=== PATIENT | female | born 1960 | race Caucasian/White ===

== ENCOUNTER 2017-05-03 22:45 | Emergency (ER) | payer OTHER ==
[2017-05-03 22:58] VITALS: BP 150/77; PULSE 100; TEMP 98.5; BMI 30.1
--- NOTE | 2017-05-03 23:23 | PDOC ---
History of Present Illness - General History Source: Patient <Niranjan Caldwell - Last Filed: 05/04/17 01:19> - General History Source: Patient Exam Limitations: No Limitations - History of Present Illness Initial Comments: 05/03/17 23:50 The patient is a 56 year old female, with significant past medical history of gastritis, hysterectomy few years ago, hx of diverticulosis and diverticulitis who presents to the ED with complaint of lower abdominal pain for 2 days. She states that the pain is cramping in nature 1010 nonradiating. She states that she was able to eat 2 hours prior to presentation. She states that she is slightly more constipated than she normally is. She is also complaining of a headache. The patient denies dysuria, frequency, urgency and hematuria. The patient denies nausea, vomiting, and diarrhea. She denies any sick contact or recent travel. The patient denies alcohol use, tobacco use, and recreational drug use. <Zaida Shaver - Last Filed: 05/04/17 01:22> - General Chief Complaint: Pain, Acute Stated Complaint: STOMACH PAIN Time Seen by Provider: 05/03/17 23:07 Past History - Past Medical History GI Disorders: Yes (GASTRITIS, divertic) - Psycho/Social/Smoking Cessation Hx Suicidal Ideation: No Smoking History: Never smoked Hx Alcohol Use: No Drug/Substance Use Hx: No Substance Use Type: None <Pam Caldwellan - Last Filed: 05/04/17 01:19> <Zaida Shaver - Last Filed: 05/04/17 01:22> - Past Medical History Allergies/Adverse Reactions: Allergies Allergy/AdvReac Type Severity Reaction Status Date / Time No Known Allergies Allergy Verified 05/03/17 22:55 Home Medications: Ambulatory Orders Ranitidine HCl [Zantac] 300 mg PO HS 05/03/17 Ibuprofen 800 mg PO TID #30 tablet 05/04/17 Levofloxacin [Levaquin -] 500 mg PO DAILY #7 tablet 05/04/17 Metronidazole [Flagyl -] 500 mg PO BID #14 tablet 05/04/17 Review of Systems - Review of Systems Able to Perform ROS?: Yes Comments:: 05/03/17 23:50 CONSTITUTIONAL: Absent: fever, chills, diaphoresis, generalized weakness, malaise, loss of appetite HEENT: Absent: rhinorrhea, nasal congestion, throat pain, throat swelling, difficulty swallowing, mouth swelling, ear pain, eye pain, visual Changes CARDIOVASCULAR: Absent: chest pain, syncope, palpitations, irregular heart rate, lightheadedness , peripheral edema RESPIRATORY: Absent: cough, shortness of breath, dyspnea with exertion, orthopnea, wheezing, stridor, hemoptysis GASTROINTESTINAL: Present: abdominal pain Absent: abdominal distension, nausea, vomiting, diarrhea, constipation, melena, hematochezia GENITOURINARY: Absent: dysuria, frequency, urgency, hesitancy, hematuria, flank pain, genital pain MUSCULOSKELETAL: Absent: myalgia, arthralgia, joint swelling SKIN: Absent: rash, itching, pallor HEMATOLOGIC/IMMUNOLOGIC: Absent: easy bleeding, easy bruising, lymphadenopathy, frequent infections ENDOCRINE: Absent: unexplained weight gain, unexplained weight loss, heat intolerance, cold intolerance NEUROLOGIC: Present: headache Absent: focal weakness or paresthesias, dizziness, unsteady gait, seizure, mental status changes, bladder or bowel incontinence PSYCHIATRIC: Absent: anxiety, depression, suicidal or homicidal ideation, hallucinations. <Zaida Shaver - Last Filed: 05/04/17 01:22> *Physical Exam - Vital Signs Last Vital Signs Temp Pulse Resp BP Pulse Ox 98.5 F 100 H 24 150/77 98 05/03/17 22:56 05/03/17 22:56 05/03/17 22:56 05/03/17 22:56 05/03/17 22:56 <Niranjan Caldwell - Last Filed: 05/04/17 01:19> - Vital Signs Last Vital Signs Temp Pulse Resp BP Pulse Ox 98.5 F 100 H 24 150/77 98 05/03/17 22:56 05/03/17 22:56 05/03/17 22:56 05/03/17 22:56 05/03/17 22:56 - Physical Exam Comments: 05/03/17 23:51 GENERAL: Well developed, well nourished. Awake and alert. In no acute distress. HEENT: Normocephalic, atraumatic. PERRLA, EOMI. No conjunctival pallor. Sclerae are non -icteric. Moist mucous membranes. Oropharynx is clear. NECK: Supple. Full ROM. No JVD. Carotid pulses 2+ and symmetric, without bruits. No thyromegaly. No lymphadenopathy. CARDIOVASCULAR: Regular rate and rhythm. No murmurs, rubs, or gallops. Distal pulses are 2+ and symmetric. PULMONARY: No evidence of respiratory distress. Lungs clear to auscultation bilaterally. No wheezing, rales or rhonchi. ABDOMINAL: (+) Abdomen soft, lower abdominal tenderness low segment region from right through lower quadrants no rebound or guarding. Non-distended. No organomegaly. Normoactive bowel sounds. MUSCULOSKELETAL Normal range of motion at all joints. No bony deformities or tenderness. No CVA tenderness. EXTREMITIES: No cyanosis. No clubbing. No edema. No calf tenderness. SKIN: Warm and dry. Normal capillary refill. No rashes. No jaundice. NEUROLOGICAL: Alert, awake, appropriate. Cranial nerves 2-12 intact. No deficits to light touch and temperature in face, upper extremities and lower extremities. No motor deficits in the in face, upper extremities and lower extremities. Normoreflexic in the upper and lower extremities. Normal speech. Toes are downgoing bilaterally. Gait is normal without ataxia. PSYCHIATRIC: Cooperative. Good eye contact. Appropriate mood and affect. <Zaida Shaver - Last Filed: 05/04/17 01:22> Heart Score/ECG Review #1 05/04/17 01:21 THIS IS A PRELIMINARY REPORT FROM [facility]CHNICIAN EXAM: CT abdomen and pelvis without contrast FINDINGS: Lung bases are clear. The visualized cardiac chambers are normal size and configuration. Normal unenhanced liver, gallbladder, pancreas, spleen, adrenal glands and kidneys. The stomach and abdominal small and large bowel are normal. There is no aortic aneurysm. There is no significant retroperitoneal lymphadenopathy. There is mild sigmoid inflammation with associated diverticulosis, consistent with diverticulitis. There is a small amount of free fluid and adjacent mesenteric edema, but no abscess or free air.. The appendix is normal. Status post hysterectomy Urinary bladder is unremarkable. There is no pelvic free fluid. No discrete pelvic lymphadenopathy is identified. IMPRESSION: Uncomplicated acute sigmoid diverticulitis. THIS DOCUMENT HAS BEEN ELECTRONICALLY SIGNED Lb Lynch MD <Zaida Shaver - Last Filed: 05/04/17 01:22> ED Treatment Course - LABORATORY CBC & Chemistry Diagram: 05/03/17 23:30 05/03/17 23:30 <Niranjan Caldwell - Last Filed: 05/04/17 01:19> - LABORATORY CBC & Chemistry Diagram: 05/03/17 23:30 05/03/17 23:30 - Medications Given in the ED: ED Medications Discontinued Medications Generic Name Dose Route Start Last Admin Trade Name Kiarra PRN Reason Stop Dose Admin Ketorolac Tromethamine 30 mg 05/03/17 23:29 05/03/17 23:42 Toradol Injection - IVPUSH 05/03/17 23:30 30 mg ONCE ONE Administration <Zaida Shaver - Last Filed: 05/04/17 01:22> Medical Decision Making - Medical Decision Making 05/04/17 01:20 Dr. Caldwell: The scribe's documentation has been prepared under my direction and personally reviewed by me in its entirery. I confirm that the note above accurately reflects all work, treatment, procedures, and medical decision making performed by me. Patient found to have an Compcare to diverticulitis. Will discharge on by mouth antibiotics. And to follow-up with GI. <Niranjan Caldwell - Last Filed: 05/04/17 01:19> *DC/Admit/Observation/Transfer - Discharge Dispostion Admit: No <Niranjan Caldwell - Last Filed: 05/04/17 01:19> - Attestations Scribe Attestion: 05/03/17 23:52 Documentation prepared by GRACIELA Amado, acting as medical director for Niranjan Caldwell DO. <Zaida Shaver - Last Filed: 05/04/17 01:22> Diagnosis at time of Disposition: Diverticulitis large intestine Qualifiers: Diverticulitis bleeding: unspecified bleeding status Diverticulitis complication: without perforation or abscess Qualified Code(s): K57.32 - Diverticulitis of large intestine without perforation or abscess without bleeding - Discharge Dispostion Disposition: HOME Condition at time of disposition: Stable - Prescriptions Prescriptions: Metronidazole [Flagyl -] 500 mg PO BID #14 tablet Ibuprofen 800 mg PO TID #30 tablet Levofloxacin [Levaquin -] 500 mg PO DAILY #7 tablet - Referrals Referrals: Margarita Sullivan MD [Primary Care Provider] - Lucian Ontiveros MD [Staff Physician] - - Patient Instructions Printed Discharge Instructions: DI for Diverticulosis, DI for Diverticulitis Print Language: TONGAN
[2017-05-03] MEDS ORDERED: SODIUM CHLORIDE 1,000 ML IV STA (23:29)
[2017-05-03] MEDS ORDERED: KETOROLAC TROMETHAMINE 30 MG/1 ML VIAL IVPUSH ONE (23:29)
[2017-05-03 23:57] LABS: BASOPHIL 0.5 % (0-2.0); MCH 30.4 pg (25.7-33.7); MCHC 33.9 g/dl (32.0-36.0); MEAN CELL VOLUME 89.8 fl (80-96); MEAN PLT VOLUME 8.7 fl (7.5-11.1); NEUTROPHILS 72.3 % (42.8-82.8); PLATELET COUNT 144 K/MM3 (134-434); RDW 13.3 % (11.6-15.6); WHITE BLOOD COUNT 6.1 K/mm3 (4.0-10.0)
[2017-05-04 00:01] LABS: INR 1.3 (0.82-1.09); PROTHROMBIN TIME (PATIENT) 14.4 SEC (9.98-11.88)
[2017-05-04 00:09] LABS: ALBUMIN 3.6 g/dl (3.4-5.0); ANION GAP 8 (8-16); BILIRUBIN,TOTAL 0.4 mg/dL (0.2-1.0); CALCIUM 8.5 mg/dL (8.5-10.1); CO2 31 mmol/L (21-32); CREATININE 0.8 mg/dL (0.55-1.02); GLUCOSE,RANDOM 137 mg/dL (74-106); MAGNESIUM 2.2 mg/dL (1.8-2.4); SGOT/AST 50 U/L (15-37); SGPT/ALT 46 U/L (12-78); TOT PROT 7.4 g/dl (6.4-8.2)
[2017-05-04 00:11] LABS: ALK PHOS 172 U/L (45-117)
[2017-05-04] MEDS ORDERED: POTASSIUM CHLORIDE TABS 20 MEQ TABLET.ER (FP) PO ONE ×2 (01:09→01:17)
[2017-05-04] MEDS ORDERED: metroNIDAZOLE 250 MG TABLET PO ONE (01:17)
[2017-05-04] MEDS ORDERED: LEVOFLOXACIN 500 MG TABLET (FP) PO ONE (01:17)
[2017-05-04] MEDS ORDERED: LEVOFLOXACIN 500 MG TABLET (FP) ONE (01:25)
[2017-05-04] MEDS ORDERED: metroNIDAZOLE 250 MG TABLET ONE (01:25)
== END 2017-05-04 01:36 | disposition home or self-care (01) ==
LOC: JER 22:45
PROC: 3E0333Z Introduction of Anti-inflammatory into Peripheral Vein, Percutaneous Approach (ICD-10-PCS; principal; 2017-05-03)
PROC: 3E0337Z Introduction of Electrolytic and Water Balance Substance into Peripheral Vein, Percutaneous Approach (ICD-10-PCS; 2017-05-03)
DX: K57.32 Diverticulitis of large intestine without perforation or abscess without bleeding (principal)
CPT/HCPCS: 36415; 74176-TC; 80053; 83690; 83735; 83880; 84703; 85025; 85610; 87040; 99283-25

== ENCOUNTER 2018-08-15 07:42 | Day surgery (SDC) | payer OTHER ==
[2018-08-13 13:53] VITALS: BMI 25.1
[~2018-08-15 07:42] MED LIST: ACETAMINOPHEN 325 MG TABLET (FP) PO PRN
[2018-08-15] MEDS ORDERED: PHENYLEPHRINE 2.5% OPHTH SOLN 15 ML BOTTLE ONE (07:51)
[2018-08-15] MEDS ORDERED: TROPICAMIDE 1% OPHTH SOLN 15 ML BOTTLE ONE (07:51)
[2018-08-15] MEDS ORDERED: OFLOXACIN 0.3% OPHTHALMIC SOLUTION 5 ML BOTTLE ONE (07:51)
[2018-08-15] MEDS ORDERED: CYCLOPENTOLATE HCL 1% OPHTH SOLN 2 ML BOTTLE ONE (07:51)
[2018-08-15] MEDS ORDERED: KETOROLAC TROMETHAMINE 0.5% EYE DROP 1 DROP DROPS ONE (07:52)
[2018-08-15] MEDS ORDERED: EPINEPHrine/PF 1 MG/1 ML (1:1,000) AMPULE ONE (07:57)
[2018-08-15] MEDS ORDERED: TETRACAINE 0.5% OPHTH SOLN 2 ML BOTTLE ONE (07:58)
[2018-08-15] MEDS ORDERED: LIDOCAINE HCL/PF 1% SDV 5ML VIAL ONE (07:58)
[2018-08-15] MEDS ORDERED: BSS (NA/CA/MG/K) BALANCED SALT SOLUTION OPHTH SOLN 15 ML BOTTLE ONE (07:58)
[2018-08-15 08:04] VITALS: TEMP 98.2
[2018-08-15] MEDS: CYCLOPENTOLATE HCL 1% OPHTH SOLN 2 ML BOTTLE OP SCH ×3 (08:25→09:13)
[2018-08-15] MEDS: OFLOXACIN 0.3% OPHTHALMIC SOLUTION 5 ML BOTTLE OP SCH ×3 (08:25→09:13)
[2018-08-15] MEDS: PHENYLEPHRINE 2.5% OPHTH SOLN 15 ML BOTTLE OP SCH ×3 (08:25→09:13)
[2018-08-15] MEDS: KETOROLAC TROMETHAMINE 0.5% EYE DROP 1 DROP DROPS OP SCH ×3 (08:25→09:13)
[2018-08-15] MEDS: TROPICAMIDE 1% OPHTH SOLN 15 ML BOTTLE OP SCH ×3 (08:25→09:13)
[2018-08-15] MEDS ORDERED: MIDAZOLAM HCL 2 MG/2 ML SINGLE DOSE VIAL ONE (09:54)
[2018-08-15] MEDS ORDERED: LIDOCAINE HCL 1% PRESERVATIVE FREE - 30ML VIAL IO ONE (09:59)
[2018-08-15] MEDS ORDERED: TETRACAINE 0.5% HCL 0.6ML DROPPER.BOTTLE OD ONE (10:00)
[2018-08-15] MEDS ORDERED: CHONDROITIN SU A/HYALUR SOD 1 KIT IO ONE (10:00)
[2018-08-15] MEDS ORDERED: EPINEPHrine/PF 1 MG/1 ML (1:1,000) AMPULE IO ONE (10:00)
--- NOTE | 2018-08-15 10:53 | SPEC ---
DATE OF OPERATION: DATE OF DICTATION: 08/15/2018 PREOPERATIVE DIAGNOSIS: Cataract, right eye. POSTOPERATIVE DIAGNOSIS: Cataract, right eye. OPERATION: Phacoemulsification with posterior chamber intraocular lens implantation, right eye. Lens used [id number], 21.0 diopter power, serial number [id number]. SURGEON: Lo Hope M.D. ANESTHESIA: Topical MAC. COMPLICATIONS: None. PROCEDURE: The patient was brought to the operating room and correctly identified along with the operative site and the correct intraocular lens kenny. The patient was then prepped and draped in the usual sterile fashion including 5% Betadine solution in the conjunctival sac and an eyelid drape. An eyelid speculum was then placed in the eye. A paracentesis port was created and approximately 0.5 mL of preservative free Lidocaine was then injected into the eye. Viscoelastic was then injected to inflate the anterior chamber. A temporal clear corneal wound was created. A continuous circular capsulorrhexis was performed. The nucleus was then hydrodissected with BSS and removed with phacoemulsification. The remaining cortical material was irrigated and aspirated. Viscoelastic was injected to inflate the capsular bag and the intraocular lens was then implanted into the capsular bag. The remaining Viscoelastic was irrigated and aspirated from the eye. The IOL was noted to be well centered and completely covered by the anterior capsulorrhexis. Topical vancomycin was placed and the eye patched and shielded. All wounds were tested and found to be watertight. No suture was placed. The eye was then shielded. The patient was then discharged from the operating room in stable condition. LO HOPE M.D. [id number]
[2018-08-15 11:21] VITALS: BP 125/70; PULSE 72
[2018-08-15] MEDS ORDERED: CHONDROITIN SU A/HYALUR SOD 1 KIT ONE (12:53)
== END 2018-08-15 11:25 | disposition home or self-care (01) ==
LOC: JASU-SURG 07:42
PROVIDERS: ATTEND Ophthalmology
PROC: 08RJ3JZ Replacement of Right Lens with Synthetic Substitute, Percutaneous Approach (ICD-10-PCS; principal; 2018-08-15 10:00)
DX: H26.9 Unspecified cataract (principal)

== ENCOUNTER 2018-09-19 15:31 | Emergency (ER) | payer OTHER ==
[2018-09-19] MEDS ORDERED: ONDANSETRON 4 MG/2 ML VIAL IVPUSH ONE (15:35)
[2018-09-19] MEDS ORDERED: SODIUM CHLORIDE 1,000 ML IV STA (15:35)
--- NOTE | 2018-09-19 15:35 | PDOC ---
Rapid Medical Evaluation Medical Evaluation: Allergies Allergy/AdvReac Type Severity Reaction Status Date / Time No Known Allergies Allergy Verified 05/03/17 22:55 I have performed a brief in-person evaluation of this patient. The patient presents with a chief complaint of: Hx fatty liver; c/o upper abdominal and back pain from yesterday after eating tacos; had 3 episodes of NBNB emesis today. Denies fever, diarrhea Pertinent physical exam findings: In NAD, abdomen soft, ND, NT; no CVA tenderness I have ordered the following: Labs, IVF, Zofran, Pepcid, EKG The patient will proceed to the ED for further evaluation. 09/19/18 15:32
[2018-09-19 15:37] VITALS: TEMP 98.6; BMI 25.4
[2018-09-19 16:15] LABS: BASO % 0.1 % (0-2.0); EOS % 0.8 % (0-4.5); HEMATOCRIT 41.3 % (32.4-45.2); HEMOGLOBIN 14.8 GM/dL (10.7-15.3); LYMPH % 11.2 % (8-40); MCH 33.5 pg (25.7-33.7); MCHC 35.9 g/dl (32.0-36.0); MEAN CELL VOLUME 93.4 fl (80-96); MEAN PLT VOLUME 8.4 fl (7.5-11.1); MONO % 7.2 % (3.8-10.2); NEUT % 80.7 % (42.8-82.8); PLATELET COUNT 137 K/MM3 (134-434); RBC 4.42 M/mm3 (3.60-5.2); WHITE BLOOD COUNT 3.6 K/mm3 (4.0-10.0)
[2018-09-19] MEDS ORDERED: ONDANSETRON 4 MG/2 ML VIAL ONE (16:22)
[2018-09-19] MEDS ORDERED: FAMOTIDINE 20 MG/50 ML IVPB 20 MG/50 ML MG IVPB ONE ×2 (16:26→16:54)
--- NOTE | 2018-09-19 16:33 | PDOC ---
History of Present Illness - General Chief Complaint: Pain Stated Complaint: ABD PAIN, HEADACHE,BACK PAIN Time Seen by Provider: 09/19/18 15:55 History Source: Patient Exam Limitations: No Limitations (nursing ) - History of Present Illness Initial Comments: Pt is a 58 yo F, with PMH of gastritis (takes ranitidine) and diverticulitis, who is presenting with complaints of lower back pain and diffuse abdominal pain since yesterday. Pt states the pain initially started in her L lower back, and was associated with 2 episodes of NBNB vomiting after eating tacos last night. Pt normally takes ranitidine for gastritis. The ranitidine helped her pain last night, but the pain started again this morning around 11 am. The pain then spread around her abdomen and is now worse in the epigastric and RUQ area, and is also now associated with a frontal headache. The pt took her ranitidine again this morning and the pain was not improved. She describes the pain as constant and sharp. Pt denies any fevers/chills, vision changes, chest pain, palpitations, SOB, nausea, urinary symptoms, diarrhea/constipation, or leg swelling. Social: Pt denies any cigarette, alcohol, or drug use. Pt denies any recent travel or sick contacts. Surgical: hysterectomy Family: no relevant history 09/19/18 17:31 Past History - Travel Traveled outside of the country in the last 30 days: No Close contact w/someone who was outside of country & ill: No - Past Medical History Allergies/Adverse Reactions: Allergies Allergy/AdvReac Type Severity Reaction Status Date / Time No Known Allergies Allergy Verified 09/19/18 15:36 Home Medications: Ambulatory Orders Ranitidine [Zantac -] 150 mg PO DAILY 08/15/18 Mag Hydrox/Al Hydrox/Simeth [Mylanta Suspension -] 30 ml PO Q6H PRN #1 bottle Anemia: Yes COPD: No GI Disorders: Yes (GASTRITIS) Liver Disease: Yes (ENLARGED, autoimmune) - Surgical History Abdominal Surgery: Yes (hysterectomy) Cholecystectomy: No GI Surgery: No - Immunization History Immunization Up to Date: Yes - Suicide/Smoking/Psychosocial Hx Smoking History: Never smoked Information on smoking cessation initiated: No Hx Alcohol Use: No Drug/Substance Use Hx: No Substance Use Type: None Hx Substance Use Treatment: No Review of Systems - Review of Systems Able to Perform ROS?: Yes Is the patient limited Slovak proficient: Yes Constitutional: Yes: Weight Stable. No: Chills, Diaphoresis, Fever, Loss of Appetite, Weakness HEENTM: No: Recent change in vision, Nose Congestion, Throat Pain Respiratory: No: Cough, Orthopnea, Shortness of Breath Cardiac (ROS): No: Chest Pain, Edema, Irregular Heart Rate, Lightheadedness, Palpitations, Syncope, Chest Tightness ABD/GI: Yes: See HPI, Vomiting, Indigestion, Abdominal cramping. No: Abdominal Distended, Abd. Pain w/ defecation, Constipated, Diarrhea, Nausea, Poor Appetite , Poor Fluid Intake, Rectal Bleeding : No: Burning, Dysuria, Frequency, Flank Pain, Pain, Testicular Mass Musculoskeletal: Yes: See HPI. No: Back Pain, Joint Pain, Joint Swelling, Muscle Weakness Integumentary: No: Rash Neurological: No: Headache, Weakness, Dizziness Psychiatric: No: Sleep Pattern Change, Change in Appetite Endocrine: No: Increased Urine, Change in Weight Hematologic/Lymphatic: No: Anemia, Blood Clots, Easy Bleeding, Easy Bruising All Other Systems: Reviewed and Negative *Physical Exam - Vital Signs Last Vital Signs Temp Pulse Resp BP Pulse Ox 98.6 F 86 18 131/97 97 09/19/18 15:35 09/19/18 15:35 09/19/18 15:35 09/19/18 15:35 09/19/18 15:35 - Physical Exam General Appearance: Yes: Nourished, Appropriately Dressed. No: Apparent Distress HEENT: positive: EOMI, AKBAR, Normal ENT Inspection, Normal Voice, Pharynx Normal , Hearing Grossly Normal. negative: Scleral Icterus (R), Scleral Icterus (L), Pharyngeal Erythema, Tonsillar Exudate, Tonsillar Erythema, Nasal Congestion, Rhinorrhea Neck: positive: Trachea midline, Normal Thyroid, Supple. negative: Tender, Rigid, Lymphadenopathy (R), Lymphadenopathy (L), Rigidity Respiratory/Chest: positive: Lungs Clear, Normal Breath Sounds. negative: Chest Tender, Respiratory Distress, Accessory Muscle Use, Crackles, Wheezing Cardiovascular: positive: Regular Rhythm, Regular Rate, S1, S2. negative: Edema , JVD, Murmur Vascular Pulses: Carotid (R): 4+, Carotid (L): 4+ Gastrointestinal/Abdominal: positive: Normal Bowel Sounds, Tender (RUQ and epigastric tenderness to palpation), Flat, Soft. negative: Organomegaly, Pulsatile Mass, Distended, Guarding, Rebound, Hepatomegaly, Spleenomegaly Rectal Exam: positive: deferred Lymphatic: negative: Adenopathy, Tenderness Musculoskeletal: positive: Normal Inspection. negative: CVA Tenderness Extremity: positive: Normal Capillary Refill, Normal Inspection, Normal Range of Motion, Pelvis Stable. negative: Tender, Pedal Edema Integumentary: positive: Normal Color, Dry, Warm. 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 NML intact, Fully Oriented, Alert, Normal Mood/ Affect, Normal Response, Motor Strength 5/5 Moderate Sedation - Procedure Monitoring Vital Signs: Procedure Monitoring Vital Signs Temperature 98.6 F 09/19/18 15:35 Pulse Rate 86 09/19/18 15:35 Respiratory Rate 18 09/19/18 15:35 Blood Pressure 131/97 09/19/18 15:35 O2 Sat by Pulse Oximetry (%) 97 09/19/18 15:35 Heart Score/ECG Review - History History: Slightly suspicious - Electrocardiogram EKG: Non specific repolarization disturbance - Age Age: 45-65 - Risk Factors Based on the list above the patient has:: No risk factors known - Troponin Troponin: </= normal limit - Score Heart Score - Total: 2 ED Treatment Course - LABORATORY CBC & Chemistry Diagram: 09/19/18 16:00 09/19/18 16:00 - ADDITIONAL ORDERS Additional order review: 09/19/18 16:00 RBC 4.42 MCV 93.4 MCHC 35.9 RDW 14.0 MPV 8.4 Neutrophils % 80.7 Lymphocytes % 11.2 D Monocytes % 7.2 Eosinophils % 0.8 Basophils % 0.1 - Medications Given in the ED: ED Medications Discontinued Medications Generic Name Dose Route Start Last Admin Trade Name Freq PRN Reason Stop Dose Admin Ondansetron HCl 4 mg 09/19/18 15:35 09/19/18 16:29 Zofran Injection IVPUSH 09/19/18 15:36 4 mg ONCE ONE Administration Medical Decision Making - Medical Decision Making Pt was seen at bedside, also will be seen by attending Dr. Farnsworth. Pt presenting with complaints of lower back pain and diffuse abdominal pain since yesterday. Pt states the pain initially started in her L lower back, and was associated with 2 episodes of NBNB vomiting after eating tacos last night. Pt normally takes ranitidine for gastritis. The ranitidine helped her pain last night, but the pain started again this morning around 11 am. The pain then spread around her abdomen and is now worse in the epigastric and RUQ area, and is also now associated with a frontal headache. The pt took her ranitidine again this morning and the pain was not improved. She describes the pain as constant and sharp. Pt denies any fevers/chills, vision changes, chest pain, palpitations, SOB, nausea, urinary symptoms, diarrhea/constipation, or leg swelling. PE showed stable vitals, afebrile. Pt lying comfortably when I entered the room. Heart and lung sounds clear. Tenderness to palpation over the RUQ and epigastric area, no rebound, no guarding. No CVA tendernss. Considering cholelithiasis vs cholecystitis vs choledocholithiasis vs gastritis vs diverticulitis. Ordered work-up including CBC, CMP, UA, and abdominal/GB US. Provided 1 L IV NS, 20 mg IV Pepcid, 4 mg IV zofran, 1 g IV ofirmev for improvement of pain and possible acid reflux. Will continue to reassess pt and monitor for symptomatic improvement. Pt was taken to US to evaluate the gallbladder, r/o cholecystitis or obstructing stone. Pending US results. CBC WNL, no elevated WBC. CMP: K 3.3, AST 95 (not elevated on previous visits), trop <.02, lipase 105 ECG: NSR, HR 86, intervals normal. TWIs in III and V3, nonspecific T waves in V6. 09/19/18 17:24 [id number] US/ABDOMEN US -LIMITED Abdomen ultrasound-Limited Clinical information: right upper quadrant tenderness; evaluate gallbladder, liver No biliary calculus is seen. The gallbladder demonstrates no definite abnormality. No pericholecystic fluid is identified. The common bile duct diameter appears unremarkable measuring 0.5 cm. No gross intraductal calculus is seen within the limitations of transabdominal sonography. Minimal to mild hepatic surface irregularity is noted consistent with cirrhosis. No obvious mass lesion is seen. No ascites is identified within the right upper quadrant. The pancreas is partially obscured due to overlapping bowel gas. No obvious pathology is seen. The right kidney demonstrates no sonographic abnormality. There is no hydronephrosis. IMPRESSION: No sonographic evidence of cholelithiasis or acute cholecystitis. There is no definite biliary tract dilatation. Hepatic cirrhosis is noted. Several 1 mm nonobstructing right renal calculi identified on a CT study of 2016 cannot be appreciated on this ultrasound exam. 09/19/18 18:07 US of abdomen negative for acute pathology. Pt still complaining of diffuse abdominal pain. Providing viscous lidocaine and 30 mg PO mylanta suspension for pt discomfort. Ordered abd/pelvis CT with IV contrast. 09/19/18 18:16 Pt provided urine for UA. 09/19/18 18:23 Urine beta-hcg negative. Pt in CT scan. 09/19/18 18:39 Urine negative for infection. Pending CT scan results. 09/19/18 18:47 CT abd/pelvis: Impression: Colonic diverticulosis is noted without evidence of acute diverticulitis. There is equivocal visualization of a mildly thickened small bowel loop within the left midabdomen laterally - ? possible enteritis versus other pathologies. Additional evaluation utilizing CT with oral contrast may be considered, emergent versus nonemergent as clinically indicated. Hepatic cirrhosis is noted. Stable borderline splenic size. Impression: Colonic diverticulosis is noted without evidence of acute diverticulitis. There is equivocal visualization of a mildly thickened small bowel loop within the left midabdomen laterally - ? possible enteritis versus other pathologies. Additional evaluation utilizing CT with oral contrast may be considered, emergent versus nonemergent as clinically indicated. Hepatic cirrhosis is noted. Stable borderline splenic size. 09/19/18 19:42 Pt states pain much improved after maalox and lidocaine suspension. Considering normal lab results and imaging pt can be discharged to home with follow-up. Pt advised to follow-up with PCP and Dr. Ontiveros in 1-2 days. Strict return precautions provided with pt understanding. 09/19/18 19:43 Maalox sent to pt pharmacy as this medication improved her pain in the department. 09/19/18 19:49 *DC/Admit/Observation/Transfer Diagnosis at time of Disposition: Abdominal pain Qualifiers: Abdominal location: generalized Qualified Code(s): R10.84 - Generalized abdominal pain - Discharge Dispostion Disposition: HOME Condition at time of disposition: Improved Decision to Admit order: No - Referrals Referrals: Margarita Sullivan MD [Primary Care Provider] - Lucian Ontiveros MD [Staff Physician] - - Patient Instructions Printed Discharge Instructions: DI for Abdominal Pain-Adult Additional Instructions: You were seen in the ER today for abdominal pain. The results of your labs and imaging today were normal. Please follow-up with your primary care doctor and Dr. Ontiveros within 1-2 days to discuss your visit and make sure your symptoms have improved. Please return to the ER if you have any worsening pain, development of fevers or chills, loss of consciousness, vomit or diarrhea with blood, inability to tolerate food or fluids, or any other concerns. Print Language: INDONESIAN - Post Discharge Activity
--- NOTE | 2018-09-19 16:39 | PDOC ---
Attending Attestation - HPI HPI: Pt is a 58 year old female, with a significant past medical history of diverticulitis, gastritis, and sciatica, who presents to the emergency department today complaining of diffuse back pain for 2 days, and diffuse abdominal pain for one day. Patient notes she began experiencing diffuse back pain last night after having tacos. She also reports two episodes of nonbilious , non bloody vomit last night, associated with the back pain after her meal, but denies nausea and vomiting today. Patient took her ranitidine last night, which helped alleviate her symptoms. Upon start up this morning, patient notes the pain began radiating into her abdomen diffusely and is most prominent in the RUQ. She describes her pain as constant and sharp in nature. Patient states she tried taking her ranitidine medication once again this morning, but it did not provide any relief. She also reports associated frontal headache. The patient denies chest pain, shortness of breath, and dizziness. Denies fever, chills, diarrhea and constipation. Denies dysuria, frequency, urgency and hematuria. Allergies: NKA Past surgical history: Hysterectomy Social history: No reported PCP: Dr. Sullivan GI: Dr. Ontiveros 09/19/18 17:59 - Physicial Exam PE: GENERAL: The patient is in no acute distress. HEAD: Normal with no signs of trauma. EYES: PERRLA, EOMI, sclera anicteric, conjunctiva clear. ENT: Ears normal, nares patent, oropharynx clear without exudates. Moist mucous membranes. NECK: Normal range of motion, supple without lymphadenopathy, JVD, or masses. LUNGS: Breath sounds equal, clear to auscultation bilaterally. No wheezes, and no crackles. HEART:Regular rate and rhythm, normal S1 and S2 without murmur, rub or gallop. ABDOMEN: +Right-sided abdominal tenderness. Soft, normoactive bowel sounds. No guarding, no rebound. No masses palpable. EXTREMITIES: Normal range of motion, no edema. No clubbing or cyanosis. No erythema, or tenderness. NEUROLOGICAL: Cranial nerves II through XII grossly intact. Normal speech. No focal neurological deficits. MUSCULOSKELETAL: Back non-tender to palpation, no CVA tenderness SKIN: Warm, Dry, normal turgor, no rashes or lesions noted. 09/19/18 18:29 <Emily Piña - Last Filed: 09/19/18 18:29> - Resident Resident Name: Avis Low - ED Attending Attestation I have performed the following: I have examined & evaluated the patient, The case was reviewed & discussed with the resident, I agree w/resident's findings & plan, Exceptions are as noted - Medical Decision Making 09/19/18 17:50 Laboratory Tests 09/19/18 09/19/18 09/19/18 16:00 16:00 16:00 WBC 3.6 L Hgb 14.8 Hct 41.3 Plt Count 137 Sodium 138 Potassium 3.3 L Chloride 104 Carbon Dioxide 27 BUN 11 Creatinine 0.8 Random Glucose 119 H Total Bilirubin 1.4 H AST 95 H Alkaline Phosphatase 129 H Troponin I < 0.02 Lipase 105 US - no obstructing gallstones, no PCCF, no GB wall thickening 09/20/18 10:49 CT pending Signed out to Dr. Phillips Anticipate discharge <Lashell Farnsworth - Last Filed: 09/20/18 10:51> Heart Score/ECG Review - ECG Intrepretation Comment:: Normal sinus rhythm. Nonspecific T wave abnormality. Abnormal ECG. 09/19/18 17:04 <Emily Piña - Last Filed: 09/19/18 18:29>
[2018-09-19 16:41] LABS: ALBUMIN 4.1 g/dl (3.4-5.0); ALK PHOS 129 U/L (45-117); ANION GAP 7 MMOL/L (8-16); BILIRUBIN,TOTAL 1.4 mg/dL (0.2-1); BLOOD UREA NITROGEN 11 mg/dL (7-18); CALCIUM 8.8 mg/dL (8.5-10.1); CHLORIDE 104 mmol/L (98-107); CO2 27 mmol/L (21-32); CREATININE 0.8 mg/dL (0.55-1.3); GLUCOSE,RANDOM 119 mg/dL (74-106); LIPASE 105 U/L (73-393); POTASSIUM 3.3 mmol/L (3.5-5.1); SGOT/AST 95 U/L (15-37); SGPT/ALT 46 U/L (13-61); SODIUM 138 mmol/L (136-145); TOT PROT 7.1 g/dl (6.4-8.2)
[2018-09-19] MEDS ORDERED: ACETAMINOPHEN 1000 MG/100 ML VIAL (NON FORMULARY) IVPB ONE (17:06)
[2018-09-19] MEDS ORDERED: ACETAMINOPHEN INJECTION 100 ML IVPB ONE (17:11)
[2018-09-19] MEDS ORDERED: MAG HYDROX/AL HYDROX/SIMETH 30 ML UNIT-DOSE CUP PO ONE (18:14)
[2018-09-19] MEDS ORDERED: LIDOCAINE VISCOUS 2% ORAL/TOP 20 ML UNIT-DOSE CUP MM ONE (18:15)
[2018-09-19] MEDS ORDERED: LIDOCAINE VISCOUS 2% ORAL/TOP 20 ML UNIT-DOSE CUP ONE (18:20)
[2018-09-19] MEDS ORDERED: MAG HYDROX/AL HYDROX/SIMETH 30 ML UNIT-DOSE CUP ONE (18:21)
[2018-09-19 18:27] LABS: HCG,QUALITATIVE URINE Negative
[2018-09-19 18:45] LABS: URINE APPEARANCE CLEAR; URINE BILIRUBIN NEGATIVE (<2.0 mg/dL); URINE COLOR LTYELLOW; URINE GLUCOSE (UA) NEGATIVE (NEGATIVE); URINE KETONE NEGATIVE (NEGATIVE); URINE LEUK ESTERASE NEGATIVE (NEGATIVE); URINE NITRITE NEGATIVE (NEGATIVE); URINE PROTEIN NEGATIVE (NEGATIVE)
[2018-09-19 20:17] VITALS: BP 128/82; PULSE 73
--- NOTE | 2018-09-20 12:05 | EKG ---
Test Reason : Blood Pressure : / mmHG Vent. Rate : 086 BPM Atrial Rate : 086 BPM P-R Int : 128 ms QRS Dur : 078 ms QT Int : 376 ms P-R-T Axes : 054 028 023 degrees QTc Int : 449 ms NORMAL SINUS RHYTHM NONSPECIFIC T WAVE ABNORMALITY ABNORMAL ECG WHEN COMPARED WITH ECG OF 10-JUN-2010 11:22, VENT. RATE HAS INCREASED BY 33 BPM NONSPECIFIC T WAVE ABNORMALITY NOW EVIDENT IN ANTERIOR LEADS Confirmed by NOEMI LEVINE MD ([id number]) on 09/20/2018 12:04:32 PM Referred By: Confirmed By:NOEMI LEVINE MD
== END 2018-09-19 20:17 | disposition home or self-care (01) ==
LOC: JER 15:31
PROC: 3E033GC Introduction of Other Therapeutic Substance into Peripheral Vein, Percutaneous Approach (ICD-10-PCS; principal; 2018-09-19)
PROC: 3E033GC Introduction of Other Therapeutic Substance into Peripheral Vein, Percutaneous Approach (ICD-10-PCS; 2018-09-19)
PROC: 3E033NZ Introduction of Analgesics, Hypnotics, Sedatives into Peripheral Vein, Percutaneous Approach (ICD-10-PCS; 2018-09-19)
DX: K57.30 Diverticulosis of large intestine without perforation or abscess without bleeding (principal)
CPT/HCPCS: 36415; 74177-TC; 76705-TC; 80053; 81003; 83690; 84484; 84703; 85025; 93005; 93010; 99283-25; J0131; J7030

== ENCOUNTER 2022-01-26 04:37 | Day surgery (SDC) | payer OTHER ==
[2022-01-24 16:44] VITALS: BMI 25.7
[~2022-01-26 04:37] MED LIST changes: +CYCLOPENTOLATE HCL 1% OPHTH SOLN 2 ML BOTTLE OP SCH; +KETOROLAC TROMETHAMINE 0.5% EYE DROP 1 DROP DROPS OP SCH; +OFLOXACIN 0.3% OPHTHALMIC SOLUTION 5 ML BOTTLE OP SCH; +PHENYLEPHRINE 2.5% OPHTH SOLN 15 ML BOTTLE OP SCH; +TROPICAMIDE 1% OPHTH SOLN 15 ML BOTTLE OP SCH
[2022-01-26] MEDS ORDERED: CYCLOPENTOLATE HCL 1% OPHTH SOLN 2 ML BOTTLE ONE (06:39)
[2022-01-26] MEDS ORDERED: OFLOXACIN 0.3% OPHTHALMIC SOLUTION 5 ML BOTTLE ONE (06:39)
[2022-01-26] MEDS ORDERED: KETOROLAC TROMETHAMINE 0.5% EYE DROP 1 DROP DROPS ONE (06:39)
[2022-01-26] MEDS ORDERED: PHENYLEPHRINE 2.5% OPHTH SOLN 15 ML BOTTLE ONE (06:39)
[2022-01-26] MEDS ORDERED: TROPICAMIDE 1% OPHTH SOLN 15 ML BOTTLE ONE (06:39)
[2022-01-26] MEDS ORDERED: TROPICAMIDE 1% OPHTH SOLN 15 ML BOTTLE OS ONE ×3 (06:40→07:00)
[2022-01-26] MEDS ORDERED: KETOROLAC TROMETHAMINE 0.5% EYE DROP 1 DROP DROPS OS ONE ×3 (06:40→06:59)
[2022-01-26] MEDS ORDERED: OFLOXACIN 0.3% OPHTHALMIC SOLUTION 5 ML BOTTLE OS ONE ×3 (06:40→06:59)
[2022-01-26] MEDS ORDERED: PHENYLEPHRINE 2.5% OPHTH SOLN 15 ML BOTTLE OS ONE ×3 (06:40→07:00)
[2022-01-26] MEDS ORDERED: CYCLOPENTOLATE HCL 1% OPHTH SOLN 2 ML BOTTLE OS ONE ×3 (06:40→06:58)
[2022-01-26] MEDS ORDERED: LIDOCAINE HCL/PF 1% SDV 5ML VIAL ONE (07:14)
[2022-01-26] MEDS ORDERED: CHONDROITIN SU A/HYALUR SOD 1 KIT ONE ×2 (07:14→08:21)
[2022-01-26] MEDS ORDERED: VANCOMYCIN 500 MG VIAL (RESTRICTED TO ID ONLY) ONE (07:25)
[2022-01-26] MEDS ORDERED: EPINEPHrine/PF 1 MG/1 ML (1:1,000) AMPULE ONE (07:25)
[2022-01-26] MEDS ORDERED: TRYPAN BLUE 0.5 ML DISP.SYRIN ONE (07:26)
[2022-01-26] MEDS ORDERED: POVIDONE-IODINE 5% OPHTHALMIC PREP 30 ML SOLUTION ONE (07:26)
[2022-01-26] MEDS ORDERED: TETRACAINE 0.5% OPHTH SOLN 2 ML BOTTLE ONE (07:26)
[2022-01-26] MEDS ORDERED: MIDAZOLAM HCL 2 MG/2 ML SINGLE DOSE VIAL ONE (07:35)
[2022-01-26] MEDS ORDERED: TETRACAINE 0.5% OPHTH SOLN 2 ML BOTTLE OS ONE (08:02)
[2022-01-26] MEDS ORDERED: POVIDONE-IODINE 5% OPHTHALMIC PREP 30 ML SOLUTION OS ONE (08:04)
[2022-01-26] MEDS ORDERED: BSS (NA/CA/MG/K) BALANCED SALT SOLUTION OPHTH SOLN 15 ML BOTTLE OS ONE (08:11)
[2022-01-26] MEDS ORDERED: CHONDROITIN SU A/HYALUR SOD 1 KIT IO ONE ×2 (08:12)
[2022-01-26] MEDS ORDERED: LIDOCAINE HCL 1% PRESERVATIVE FREE - 30ML VIAL IO ONE (08:12)
[2022-01-26] MEDS ORDERED: TRYPAN BLUE 0.5 ML DISP.SYRIN IO ONE (08:13)
[2022-01-26] MEDS ORDERED: EPINEPHrine/PF 1 MG/1 ML (1:1,000) AMPULE SQ ONE (08:21)
[2022-01-26] MEDS ORDERED: ACETYLCHOLINE 1:100 INTRA-OCUL 20 MG/2 ML KIT IO ONE (08:58)
[2022-01-26 12:05] VITALS: BP 138/70; PULSE 68; TEMP 98
== END 2022-01-26 10:20 | disposition home or self-care (01) ==
LOC: JASU-SURG 04:37
PROVIDERS: ATTEND Ophthalmology
PROC: 08RK3JZ Replacement of Left Lens with Synthetic Substitute, Percutaneous Approach (ICD-10-PCS; principal; 2022-01-26 08:00)
DX: H26.9 Unspecified cataract (principal)

== ENCOUNTER 2023-06-07 15:33 | Emergency (ER) | payer OTHER ==
[2023-06-07 15:44] VITALS: BP 100/67; RESP 18; TEMP 98.8; BMI 25.4
[2023-06-07 17:21] LABS: BASO % 0.6 % (0-2.0); EOS % 0.8 % (0-4.5); HEMATOCRIT 37.3 % (32.4-45.2); HEMOGLOBIN 12.9 GM/dL (10.7-15.3); LYMPH % 15.1 % (8-40); MCH 32.9 pg (25.7-33.7); MCHC 34.5 g/dl (32.0-36.0); MEAN CELL VOLUME 95.4 fl (80-96); MEAN PLT VOLUME 7.9 fl (7.5-11.1); MONO % 7.8 % (3.8-10.2); NEUT % 75.7 % (42.8-82.8); PLATELET COUNT 240 10^3/uL (134-434); RBC 3.91 M/mm3 (3.60-5.2); RDW 15.6 % (11.6-15.6); WHITE BLOOD COUNT 5.9 K/mm3 (4.0-10.0)
[2023-06-07 17:51] LABS: POTASSIUM 3.1 mmol/L (3.5-5.1)
[2023-06-07 17:53] LABS: ALBUMIN 2.8 g/dl (3.4-5.0); CALCIUM 8.8 mg/dL (8.5-10.1)
[2023-06-07 17:56] LABS: CREATININE 0.6 mg/dL (0.55-1.3); PHOSPHOROUS 3.2 mg/dL (2.5-4.9)
[2023-06-07 17:57] LABS: TOT PROT 6.4 g/dl (6.4-8.2)
[2023-06-07 17:58] LABS: BILIRUBIN,TOTAL 1.3 mg/dL (0.2-1)
[2023-06-07] MEDS ORDERED: POTASSIUM CHLORIDE ORAL LIQUID 20 MEQ/15 ML PO ONE (18:08)
[2023-06-07] MEDS ORDERED: KCL 10 MEQ IVPB 10 MEQ/100 ML INFUS.BAG IVPB SCH (18:15)
[2023-06-07] MEDS ORDERED: POTASSIUM CHLORIDE ORAL LIQUID 20 MEQ/15 ML ONE (19:49)
[2023-06-07] MEDS ORDERED: KCL 10 MEQ IVPB 10 MEQ/100 ML INFUS.BAG IVPB ONE (19:49)
[2023-06-07 21:47] LABS: POTASSIUM 4.2 mmol/L (3.5-5.1)
[2023-06-07 21:48] LABS: CALCIUM 8.7 mg/dL (8.5-10.1)
[2023-06-07 21:49] LABS: BLOOD UREA NITROGEN 7.5 mg/dL (7-18)
[2023-06-07 21:52] LABS: CREATININE 0.7 mg/dL (0.55-1.3)
[2023-06-07 22:05] VITALS: PULSE 100
== END 2023-06-07 22:20 | disposition home or self-care (01) ==
LOC: JER 15:33
PROC: 3E033GC Introduction of Other Therapeutic Substance into Peripheral Vein, Percutaneous Approach (ICD-10-PCS; principal; 2023-06-07)
DX: E87.6 Hypokalemia (principal)
CPT/HCPCS: 36415; 80048; 80053; 83735; 84100; 85025; 93005; 93010; 99284-25

== ENCOUNTER 2023-09-04 04:20 | Day surgery (SDC) | payer OTHER ==
[2023-09-01 11:17] VITALS: BMI 25.4
[2023-09-04] MEDS ORDERED: ceFAZolin SODIUM 1 GM VIAL IVPB ONE ×3 (08:01→09:45)
[2023-09-04] MEDS ORDERED: IOVERSOL 300 MG/ML ML IV ONE ×2 (08:22→09:45)
[2023-09-04] MEDS ORDERED: oxyCODONE HCL 5 MG TABLET PO PRN (08:58)
[2023-09-04] MEDS ORDERED: ONDANSETRON 4 MG/2 ML VIAL IVPUSH PRN ×2 (08:58→10:25)
[2023-09-04] MEDS ORDERED: LACTATED RINGERS SOLUTION 1,000 ML IV SCH ×2 (09:00→10:30)
[2023-09-04] MEDS ORDERED: FENTANYL CITRATE/PF 50 MCG/ML VIAL ONE ×2 (09:31→10:41)
[2023-09-04] MEDS ORDERED: ONDANSETRON 4 MG/2 ML VIAL ONE (10:19)
[2023-09-04] MEDS ORDERED: KETOROLAC TROMETHAMINE 30 MG/1 ML VIAL ONE (10:19)
[2023-09-04] MEDS ORDERED: DEXAMETHASONE SOD PHOSPHATE 4 MG/1 ML VIAL ONE (10:20)
[2023-09-04] MEDS ORDERED: ceFAZolin SODIUM 1 GM VIAL ONE ×2 (10:20)
[2023-09-04] MEDS ORDERED: oxyCODONE HCL 5 MG TABLET ONE (11:45)
[2023-09-04 12:59] VITALS: RESP 20; TEMP 97.1
[2023-09-04 13:05] VITALS: BP 130/75; PULSE 68
== END 2023-09-04 12:50 | disposition home or self-care (01) ==
LOC: JASU-SURG 04:20
PROVIDERS: ATTEND Urology
PROC: 0TC08ZZ Extirpation of Matter from Right Kidney, Via Natural or Artificial Opening Endoscopic (ICD-10-PCS; principal; 2023-09-04 08:00)
PROC: 0T768DZ Dilation of Right Ureter with Intraluminal Device, Via Natural or Artificial Opening Endoscopic (ICD-10-PCS; 2023-09-04 08:00)
DX: N20.0 Calculus of kidney (principal)
CPT/HCPCS: 36415; 76000-TC-FY; 82360; 82962; 88300-TC; 94760; C1758; C2617

== ENCOUNTER 2023-11-05 04:18 | Inpatient (IN) | payer OTHER ==
[2023-11-05] MEDS ORDERED: LIDOCAINE 4% PATCH TP ONE (04:31)
[2023-11-05] MEDS: LIDOCAINE 5% TOPICAL PATCH TP ONE (04:35)
[2023-11-05] MEDS ORDERED: diazePAM 5 MG TABLET ONE (04:41)
[2023-11-05] MEDS: diazePAM 5 MG TABLET PO ONE (04:46)
[2023-11-05 04:56] LABS: EPI CELLS 10 /uL (0-25.1); HYALINE CASTS 4 /uL (0-3.1); PH,URINE 7.5 (5.0-8.0); URINE APPEARANCE CLOUDY; URINE BACTERIA >9,000 /uL (0-1359); URINE BILIRUBIN NEGATIVE (NEGATIVE); URINE COLOR YELLOW; URINE GLUCOSE (UA) NEGATIVE (NEGATIVE); URINE KETONE NEGATIVE (NEGATIVE); URINE LEUK ESTERASE 2+ (NEGATIVE); URINE NITRITE POSITIVE (NEGATIVE); URINE PROTEIN TRACE (NEGATIVE); URINE RBC 22 /uL (0-23.9); URINE WBC 761 /uL (0-25.8)
[2023-11-05] MEDS: SULFAMETHOXAZOLE/TRIMETHOPRIM 800MG/160MG D.S. TABLET PO ONE (05:16)
[2023-11-05] MEDS ORDERED: SULFAMETHOXAZOLE/TRIMETHOPRIM 800MG/160MG D.S. TABLET ONE (05:16)
[2023-11-05 05:25] LABS: BASO % 0.6 % (0-2.0); EOS % 1.3 % (0-4.5); HEMATOCRIT 36.8 % (32.4-45.2); HEMOGLOBIN 12.7 GM/dL (10.7-15.3); LYMPH % 9.9 % (8-40); MCH 33.2 pg (25.7-33.7); MCHC 34.4 g/dl (32.0-36.0); MEAN CELL VOLUME 96.4 fl (80-96); MEAN PLT VOLUME 7.6 fl (7.5-11.1); MONO % 3.8 % (3.8-10.2); NEUT % 84.4 % (42.8-82.8); PLATELET COUNT 113 10^3/uL (134-434); RBC 3.82 M/mm3 (3.60-5.2); RDW 15.6 % (11.6-15.6)
[2023-11-05] MEDS: ACETAMINOPHEN 1000 MG/100 ML BAG IVPB ONE ×2 (05:26→06:36)
[2023-11-05] MEDS: CEFTRIAXONE 1,000 MG in DEXTROSE 5%-WATER - 50 ML IVPB ONE (05:26)
[2023-11-05 05:41] LABS: CHLORIDE 106 mmol/L (98-107); SODIUM 143 mmol/L (136-145)
[2023-11-05 05:44] LABS: BLOOD UREA NITROGEN 12.3 mg/dL (7-18); CALCIUM 8.1 mg/dL (8.5-10.1); CO2 29 mmol/L (21-32); GLUCOSE,RANDOM 167 mg/dL (74-106)
[2023-11-05 05:45] LABS: ALBUMIN 2.8 g/dl (3.4-5.0)
[2023-11-05 05:46] LABS: SGPT/ALT 35 U/L (13-61)
[2023-11-05 05:48] LABS: BILIRUBIN,TOTAL 1.4 mg/dL (0.2-1); CREATININE 0.8 mg/dL (0.55-1.3); SGOT/AST 36 U/L (15-37); TOT PROT 5.9 g/dl (6.4-8.2)
[2023-11-05 05:50] LABS: ALK PHOS 206 U/L (45-117)
[2023-11-05] MEDS ORDERED: diazePAM 5 MG TABLET PO SCH (06:00)
[2023-11-05 06:22] LABS: ANION GAP 7 mmol/L (4-13); POTASSIUM 2.3 mmol/L (3.5-5.1)
[2023-11-05] MEDS ORDERED: ACETAMINOPHEN INJECTION 100 ML IVPB ONE (06:33)
[2023-11-05] MEDS ORDERED: MAGNESIUM SULFATE IN WATER 2 GM/50 ML IVPB IVPB ONE (06:38)
[2023-11-05] MEDS ORDERED: POTASSIUM CHLORIDE TABS 20 MEQ TABLET.ER (FP) PO ONE ×2 (06:38→11:36)
[2023-11-05] MEDS: MAGNESIUM SULF 50% (8.12 MEQ/2 ML-1 GM VIAL) IVPB ONE (06:43)
[2023-11-05] MEDS: POTASSIUM CHLORIDE TABS 20 MEQ TABLET.ER (FP) PO ONE (06:43)
[2023-11-05 06:58] LABS: INR 1.19 (0.83-1.09); PROTHROMBIN TIME (PATIENT) 13.8 SEC (9.7-13.0)
[2023-11-05 07:01] LABS: ACTIVATED PTT 24.7 SECONDS (25.2-36.5)
[2023-11-05] MEDS ORDERED: KCL 10 MEQ IVPB 30 MEQ/300 ML INFUS.BAG IVPB ONE (07:48)
[2023-11-05] MEDS: KCL 10 MEQ IVPB 10 MEQ/100 ML INFUS.BAG IVPB SCH (08:00)
[2023-11-05] MEDS ORDERED: PATIENT'S OWN MEDICATION (NON-FORMULARY) (Budesonide [Budesonide Er] 9 MG Tabdr...Er) PO SCH (10:00)
[2023-11-05] MEDS ORDERED: KETOROLAC TROMETHAMINE 15 MG/ML VIAL ONE (11:34)
[2023-11-05] MEDS ORDERED: HEPARIN NA (PORCINE) 5,000 UNITS/ML 1ML VIAL ONE (11:36)
[2023-11-05] MEDS ORDERED: CEFTRIAXONE 1 GM/50 ML BAG ONE (11:36)
[2023-11-05] MEDS ORDERED: VALSARTAN 80 MG TABLET ONE (11:36)
[2023-11-05] MEDS: HEPARIN NA (PORCINE) 5,000 UNITS/ML 1ML VIAL SQ SCH (11:55)
[2023-11-05] MEDS: VALSARTAN 80 MG TABLET PO SCH (11:55)
[2023-11-05] MEDS: KETOROLAC TROMETHAMINE 15 MG/ML VIAL IVPUSH PRN (11:55)
[2023-11-05] MEDS: POTASSIUM CHLORIDE TABS 20 MEQ TABLET.ER (FP) PO SCH (11:55)
[2023-11-05] MEDS: INSULIN ASPART SLIDING SCALE (NOVOLOG) 1 VIAL SQ SCH (12:01)
[2023-11-05] MEDS: CEFTRIAXONE 1 GM in DEXTROSE 5%-WATER - 50 ML IVPB SCH (12:32)
[2023-11-05] MEDS: CALCITONIN - SALMON SYNTHETIC 400 UNIT/2 ML VIAL SQ SCH (13:05)
[2023-11-05] MEDS: azaTHIOprine 50 MG TABLET PO SCH (13:15)
[2023-11-05 13:19] LABS: CALCIUM 7.8 mg/dL (8.5-10.1); POTASSIUM 3.1 mmol/L (3.5-5.1)
[2023-11-05 13:20] LABS: BLOOD UREA NITROGEN 9.3 mg/dL (7-18)
[2023-11-05 13:24] LABS: CREATININE 0.6 mg/dL (0.55-1.3)
[2023-11-05] MEDS: CALCITONIN - SALMON SYNTHETIC 200 UNITS/SPRAY NS SCH (20:57)
[2023-11-05] MEDS: ACETAMINOPHEN 500 MG TABLET (FP) PO PRN (21:36)
[2023-11-05] MEDS: LIDOCAINE PATCH REMOVAL MC ONE (21:37)
[2023-11-06 07:31] LABS: EOS % 2.3 % (0-4.5); HEMATOCRIT 37.4 % (32.4-45.2); HEMOGLOBIN 13.1 GM/dL (10.7-15.3); LYMPH % 11.6 % (8-40); MCH 33.8 pg (25.7-33.7); MCHC 35.1 g/dl (32.0-36.0); MEAN CELL VOLUME 96.5 fl (80-96); MEAN PLT VOLUME 7.4 fl (7.5-11.1); MONO % 4.2 % (3.8-10.2); NEUT % 81.7 % (42.8-82.8); PLATELET COUNT 129 10^3/uL (134-434); RBC 3.88 M/mm3 (3.60-5.2); RDW 15.8 % (11.6-15.6); WHITE BLOOD COUNT 4.7 K/mm3 (4.0-10.0)
[2023-11-06 07:32] LABS: BASO % 0.2 % (0-2.0)
[2023-11-06 07:58] LABS: CHLORIDE 106 mmol/L (98-107); SODIUM 143 mmol/L (136-145)
[2023-11-06 08:01] LABS: CALCIUM 8.3 mg/dL (8.5-10.1)
[2023-11-06 08:05] LABS: CREATININE 0.6 mg/dL (0.55-1.3)
[2023-11-06 08:15] LABS: ANION GAP 8 mmol/L (4-13); CO2 29 mmol/L (21-32); GLUCOSE,RANDOM 135 mg/dL (74-106); POTASSIUM 2.8 mmol/L (3.5-5.1)
[2023-11-06] MEDS: KCL 10 MEQ IVPB 10 MEQ/100 ML INFUS.BAG IVPB SCH (09:36)
[2023-11-06] MEDS: POTASSIUM CHLORIDE ORAL LIQUID 20 MEQ/15 ML PO ONE (10:21)
[2023-11-06] MEDS: GABAPENTIN 100 MG CAPSULE PO SCH (13:42)
[2023-11-06] MEDS: METHOCARBAMOL 500 MG TABLET PO SCH (13:43)
[2023-11-07 07:20] LABS: HEMATOCRIT 39.3 % (32.4-45.2); HEMOGLOBIN 13.5 GM/dL (10.7-15.3); MCH 33.1 pg (25.7-33.7); MCHC 34.5 g/dl (32.0-36.0); MEAN CELL VOLUME 96.2 fl (80-96); MEAN PLT VOLUME 7.8 fl (7.5-11.1); PLATELET COUNT 169 10^3/uL (134-434); RBC 4.09 M/mm3 (3.60-5.2); RDW 16.4 % (11.6-15.6); WHITE BLOOD COUNT 5.3 K/mm3 (4.0-10.0)
[2023-11-07 07:29] LABS: POTASSIUM 3.3 mmol/L (3.5-5.1)
[2023-11-07 07:34] LABS: BLOOD UREA NITROGEN 10.6 mg/dL (7-18); MAGNESIUM 1.9 mg/dL (1.8-2.4)
[2023-11-07 07:35] LABS: ALBUMIN 2.8 g/dl (3.4-5.0); CALCIUM 8.5 mg/dL (8.5-10.1)
[2023-11-07 07:37] LABS: CREATININE 0.6 mg/dL (0.55-1.3)
[2023-11-07 07:39] LABS: BILIRUBIN,TOTAL 1.9 mg/dL (0.2-1); TOT PROT 6.1 g/dl (6.4-8.2)
[2023-11-07] MEDS: POTASSIUM CHLORIDE ORAL LIQUID 20 MEQ/15 ML PO ONE ×2 (08:29→11:18)
[2023-11-07] MEDS ORDERED: INSULIN (NOVOLOG) ASPART 100 UNITS/ML 10ML VIAL ONE (11:32)
[2023-11-08 07:28] LABS: HEMATOCRIT 37.4 % (32.4-45.2); HEMOGLOBIN 12.8 GM/dL (10.7-15.3); MCH 33.5 pg (25.7-33.7); MCHC 34.2 g/dl (32.0-36.0); MEAN CELL VOLUME 97.9 fl (80-96); MEAN PLT VOLUME 7.9 fl (7.5-11.1); PLATELET COUNT 168 10^3/uL (134-434); RBC 3.82 M/mm3 (3.60-5.2); RDW 16.1 % (11.6-15.6)
[2023-11-08 07:36] LABS: POTASSIUM 4.2 mmol/L (3.5-5.1)
[2023-11-08 07:55] LABS: ALBUMIN 2.7 g/dl (3.4-5.0); CREATININE 0.8 mg/dL (0.55-1.3)
[2023-11-08 07:56] LABS: BILIRUBIN,TOTAL 1.9 mg/dL (0.2-1); TOT PROT 5.6 g/dl (6.4-8.2)
[2023-11-08 08:01] LABS: CALCIUM 8.5 mg/dL (8.5-10.1)
[2023-11-08 08:02] LABS: BLOOD UREA NITROGEN 17.3 mg/dL (7-18)
[2023-11-08] MEDS ORDERED: ACETAMINOPHEN 500 MG TABLET (FP) PO PRN (09:17)
[2023-11-08] MEDS ORDERED: KETOROLAC TROMETHAMINE 15 MG/ML VIAL IVPUSH PRN (09:17)
[2023-11-08] MEDS: CEFTRIAXONE 1 GM in DEXTROSE 5%-WATER - 50 ML IVPB SCH (12:30)
[2023-11-08] MEDS: HEPARIN NA (PORCINE) 5,000 UNITS/ML 1ML VIAL SQ SCH (12:31)
[2023-11-08] MEDS: POTASSIUM CHLORIDE TABS 20 MEQ TABLET.ER (FP) PO SCH (12:32)
[2023-11-08] MEDS: METHOCARBAMOL 500 MG TABLET PO SCH (12:32)
[2023-11-08] MEDS: VALSARTAN 80 MG TABLET PO SCH (12:32)
[2023-11-08] MEDS: GABAPENTIN 100 MG CAPSULE PO SCH (14:05)
[2023-11-08] MEDS: azaTHIOprine 50 MG TABLET PO SCH (14:34)
[2023-11-08] MEDS: INSULIN ASPART SLIDING SCALE (NOVOLOG) 1 VIAL SQ SCH (14:42)
[2023-11-08] MEDS: CALCITONIN - SALMON SYNTHETIC 200 UNITS/SPRAY NS SCH (16:44)
[2023-11-08] MEDS: VANCOMYCIN/WATER FOR INJ (PEG) 1,000 MG/200 ML BAG IVPB ONE (18:06)
[2023-11-08] MEDS: ACETAMINOPHEN 500 MG TABLET (FP) PO PRN (18:32)
[2023-11-08] MEDS: SODIUM CHLORIDE 1,000 ML IV STA (21:52)
[2023-11-09] MEDS: ACETAMINOPHEN 325 MG TABLET (FP) PO PRN (06:03)
[2023-11-09 10:07] LABS: BASO % 0.7 % (0-2.0); EOS % 3.2 % (0-4.5); HEMATOCRIT 33.7 % (32.4-45.2); HEMOGLOBIN 11.8 GM/dL (10.7-15.3); LYMPH % 13.5 % (8-40); MCHC 35.1 g/dl (32.0-36.0); MEAN PLT VOLUME 7.8 fl (7.5-11.1); MONO % 6.7 % (3.8-10.2); NEUT % 75.9 % (42.8-82.8); PLATELET COUNT 160 10^3/uL (134-434); RBC 3.47 M/mm3 (3.60-5.2); RDW 16.3 % (11.6-15.6); WHITE BLOOD COUNT 4.9 K/mm3 (4.0-10.0)
[2023-11-09 10:21] LABS: POTASSIUM 3.7 mmol/L (3.5-5.1)
[2023-11-09 10:26] LABS: ALBUMIN 2.5 g/dl (3.4-5.0); CALCIUM 8.6 mg/dL (8.5-10.1); MAGNESIUM 1.6 mg/dL (1.8-2.4)
[2023-11-09 10:29] LABS: CREATININE 0.6 mg/dL (0.55-1.3); PHOSPHOROUS 3.3 mg/dL (2.5-4.9)
[2023-11-09 10:31] LABS: BILIRUBIN,TOTAL 1.5 mg/dL (0.2-1); TOT PROT 5.5 g/dl (6.4-8.2)
[2023-11-09] MEDS: LACTATED RINGERS SOLUTION 1,000 ML/1,000 ML INFUS.BAG IV SCH (11:41)
[2023-11-09] MEDS: VANCOMYCIN/WATER FOR INJ (PEG) 1,000 MG/200 ML BAG IVPB SCH (13:39)
[2023-11-09] MEDS: DEXAMETHASONE 4 MG TABLET (FP) PO SCH (14:30)
[2023-11-09] MEDS: ACETAMINOPHEN 1000 MG/100 ML BAG IVPB ONE (15:54)
[2023-11-09] MEDS: MAGNESIUM SULFATE IN WATER 2 GM/50 ML IVPB IVPB ONE (16:01)
[2023-11-09] MEDS: REMDESIVIR 200 MG in SODIUM CHLORIDE 250 ML IVPB ONE (17:11)
[2023-11-10 09:07] LABS: BASO % 0.2 % (0-2.0); HEMOGLOBIN 11.1 GM/dL (10.7-15.3); LYMPH % 8.5 % (8-40); MCH 33.4 pg (25.7-33.7); MCHC 34.7 g/dl (32.0-36.0); MEAN CELL VOLUME 96.5 fl (80-96); MEAN PLT VOLUME 7.6 fl (7.5-11.1); MONO % 4.1 % (3.8-10.2); NEUT % 87.2 % (42.8-82.8); PLATELET COUNT 147 10^3/uL (134-434); RBC 3.32 M/mm3 (3.60-5.2); RDW 16.2 % (11.6-15.6); WHITE BLOOD COUNT 5.5 K/mm3 (4.0-10.0)
[2023-11-10 09:52] LABS: ALBUMIN 2.6 g/dl (3.4-5.0); BILIRUBIN,TOTAL 0.7 mg/dL (0.2-1); BLOOD UREA NITROGEN 13.6 mg/dL (7-18); CALCIUM 8.5 mg/dL (8.5-10.1); CREATININE 0.6 mg/dL (0.55-1.3); POTASSIUM 3.6 mmol/L (3.5-5.1); TOT PROT 5.8 g/dl (6.4-8.2)
[2023-11-10] MEDS: PANTOPRAZOLE 40 MG TABLET PO SCH (10:18)
[2023-11-10] MEDS ORDERED: INSULIN (NOVOLOG) ASPART 100 UNITS/ML 10ML VIAL ONE ×2 (12:27→17:31)
[2023-11-10] MEDS: REMDESIVIR 100 MG in SODIUM CHLORIDE 250 ML IVPB SCH (17:33)
[2023-11-11] MEDS: levoFLOXacin 500 MG, levoFLOXacin 250 MG PO SCH (07:08)
[2023-11-11 08:47] LABS: BASO % 0.2 % (0-2.0); HEMATOCRIT 32.9 % (32.4-45.2); HEMOGLOBIN 11.2 GM/dL (10.7-15.3); LYMPH % 7.2 % (8-40); MCH 33.3 pg (25.7-33.7); MCHC 34.1 g/dl (32.0-36.0); MEAN CELL VOLUME 97.5 fl (80-96); MEAN PLT VOLUME 7.9 fl (7.5-11.1); MONO % 3.8 % (3.8-10.2); NEUT % 88.8 % (42.8-82.8); PLATELET COUNT 154 10^3/uL (134-434); RBC 3.37 M/mm3 (3.60-5.2); RDW 16.7 % (11.6-15.6); WHITE BLOOD COUNT 7.2 K/mm3 (4.0-10.0)
[2023-11-11 09:02] LABS: POTASSIUM 3.3 mmol/L (3.5-5.1)
[2023-11-11 09:08] LABS: ALBUMIN 2.6 g/dl (3.4-5.0); CALCIUM 8.7 mg/dL (8.5-10.1)
[2023-11-11 09:09] LABS: BLOOD UREA NITROGEN 17.7 mg/dL (7-18)
[2023-11-11 09:11] LABS: CREATININE 0.7 mg/dL (0.55-1.3)
[2023-11-11 09:13] LABS: BILIRUBIN,TOTAL 0.6 mg/dL (0.2-1); TOT PROT 5.6 g/dl (6.4-8.2)
[2023-11-11] MEDS: POTASSIUM CHLORIDE ORAL LIQUID 20 MEQ/15 ML PO ONE (10:08)
[2023-11-11 12:31] LABS: MAGNESIUM 1.8 mg/dL (1.8-2.4)
[2023-11-11 12:34] LABS: PHOSPHOROUS 3.3 mg/dL (2.5-4.9)
[2023-11-12] MEDS ORDERED: METHOCARBAMOL 500 MG TABLET PO PRN (07:39)
[2023-11-12] MEDS: VALSARTAN 40 MG TABLET PO SCH (10:21)
[2023-11-12 11:21] LABS: BASO % 0.3 % (0-2.0); EOS % 0.1 % (0-4.5); HEMATOCRIT 35.2 % (32.4-45.2); HEMOGLOBIN 12.1 GM/dL (10.7-15.3); LYMPH % 10.2 % (8-40); MCH 33.6 pg (25.7-33.7); MCHC 34.5 g/dl (32.0-36.0); MEAN CELL VOLUME 97.3 fl (80-96); MEAN PLT VOLUME 7.5 fl (7.5-11.1); MONO % 7.7 % (3.8-10.2); NEUT % 81.7 % (42.8-82.8); PLATELET COUNT 150 10^3/uL (134-434); RBC 3.62 M/mm3 (3.60-5.2); RDW 16.9 % (11.6-15.6); WHITE BLOOD COUNT 6.8 K/mm3 (4.0-10.0)
[2023-11-12 11:50] LABS: POTASSIUM 3.5 mmol/L (3.5-5.1)
[2023-11-12 11:51] LABS: CALCIUM 9.3 mg/dL (8.5-10.1)
[2023-11-12 11:52] LABS: BLOOD UREA NITROGEN 20.5 mg/dL (7-18)
[2023-11-12] MEDS ORDERED: INSULIN (NOVOLOG) ASPART 100 UNITS/ML 10ML VIAL ONE (11:53)
[2023-11-12 11:55] LABS: CREATININE 0.7 mg/dL (0.55-1.3)
[2023-11-12] MEDS: BUDESONIDE 9 MG PO SCH (13:32)
[2023-11-12] MEDS: METHOCARBAMOL 500 MG TABLET PO SCH (14:57)
[2023-11-13 13:41] VITALS: BMI 25.4
[2023-11-13] MEDS: VANCOMYCIN/WATER FOR INJ (PEG) 1,000 MG/200 ML BAG IVPB SCH (15:03)
[2023-11-13] MEDS ORDERED: INSULIN (NOVOLOG) ASPART 100 UNITS/ML 10ML VIAL ONE (17:10)
[2023-11-13 20:46] VITALS: BP 130/82; PULSE 81; RESP 18; TEMP 98.2
== END 2023-11-13 20:35 | DRG 551 ==
LOC: JER 04:18 → JERBED 06:34 → J4W 15:18 → J5S 11-08 08:13 → J7W 11-09 15:09
PROVIDERS: ADMIT Internal Medicine; ATTEND Internal Medicine
PROC: XW033E5 Introduction of Remdesivir Anti-infective into Peripheral Vein, Percutaneous Approach, New Technology Group 5 (ICD-10-PCS; principal; 2023-11-08)
PROC: 02HV33Z Insertion of Infusion Device into Superior Vena Cava, Percutaneous Approach (ICD-10-PCS; 2023-11-13)
PROC: B548ZZA Ultrasonography of Superior Vena Cava, Guidance (ICD-10-PCS; 2023-11-13)
DX: S32.009A Unspecified fracture of unspecified lumbar vertebra, initial encounter for closed fracture (principal); U07.1 COVID-19; N39.0 Urinary tract infection, site not specified; X58.XXXA Exposure to other specified factors, initial encounter; Y93.89 Activity, other specified; Y92.89 Other specified places as the place of occurrence of the external cause; Y99.8 Other external cause status; K80.20 Calculus of gallbladder without cholecystitis without obstruction; E87.6 Hypokalemia; I10 Essential (primary) hypertension; E11.9 Type 2 diabetes mellitus without complications; K75.4 Autoimmune hepatitis; B96.20 Unspecified Escherichia coli [E. coli] as the cause of diseases classified elsewhere; M43.16 Spondylolisthesis, lumbar region; M48.061 Spinal stenosis, lumbar region without neurogenic claudication
CPT/HCPCS: 0241U-QW; 36415; 36569; 72131-TC; 72148-TC; 72170-TC-FY; 73521-TC-FY; 74177-TC; 76705-TC; 80048; 80053; 81003; 82140; 82550; 82962; 83036; 83735; 84100; 84484; 85025; 85027; 85610; 85730; 86140; 87040; 87086; 87186; 87635; 93005; 93010; 97116-GP; 97162-GP; 99285-25; G0480; J0248; J1644; Q9967

== ENCOUNTER 2023-12-29 13:00 | Inpatient (IN) | payer OTHER ==
[2023-12-29 13:18] VITALS: BMI 27.3
[2023-12-29 14:09] LABS: BASO % 0.4 % (0-2.0); EOS % 0.1 % (0-4.5); HEMATOCRIT 38.9 % (32.4-45.2); HEMOGLOBIN 12.9 GM/dL (10.7-15.3); LYMPH % 8.5 % (8-40); MCHC 33.3 g/dl (32.0-36.0); MEAN CELL VOLUME 96.2 fl (80-96); MEAN PLT VOLUME 7.3 fl (7.5-11.1); MONO % 2.7 % (3.8-10.2); NEUT % 88.3 % (42.8-82.8); PLATELET COUNT 155 10^3/uL (134-434); RBC 4.04 M/mm3 (3.60-5.2); RDW 16.5 % (11.6-15.6); WHITE BLOOD COUNT 8.5 K/mm3 (4.0-10.0)
[2023-12-29 14:24] LABS: INR 1.38 (0.83-1.09); PROTHROMBIN TIME (PATIENT) 15.9 SEC (9.7-13.0)
[2023-12-29 14:27] LABS: ACTIVATED PTT 25.1 SECONDS (25.2-36.5)
[2023-12-29 14:45] LABS: POTASSIUM 5.1 mmol/L (3.5-5.1)
[2023-12-29 14:48] LABS: ALBUMIN 2.7 g/dl (3.4-5.0); BLOOD UREA NITROGEN 7.1 mg/dL (7-18); CALCIUM 8.4 mg/dL (8.5-10.1)
[2023-12-29 14:51] LABS: CREATININE 0.5 mg/dL (0.55-1.3)
[2023-12-29 14:53] LABS: BILIRUBIN,TOTAL 2.3 mg/dL (0.2-1); TOT PROT 5.8 g/dl (6.4-8.2)
[2023-12-29] MEDS: KETOROLAC TROMETHAMINE 30 MG/1 ML VIAL IM ONE (15:49)
[2023-12-29] MEDS ORDERED: KETOROLAC TROMETHAMINE 30 MG/1 ML VIAL ONE (15:50)
[2023-12-29 16:00] LABS: EPI CELLS 15 /uL (0-25.1); HYALINE CASTS 1 /uL (0-3.1); PH,URINE 6.5 (5.0-8.0); URINE APPEARANCE CLEAR; URINE BACTERIA 15 /uL (0-1359); URINE BILIRUBIN 1+ (NEGATIVE); URINE COLOR DK YELLOW; URINE GLUCOSE (UA) NEGATIVE (NEGATIVE); URINE KETONE 2+ (NEGATIVE); URINE LEUK ESTERASE TRACE (NEGATIVE); URINE NITRITE NEGATIVE (NEGATIVE); URINE PROTEIN NEGATIVE (NEGATIVE); URINE RBC 13 /uL (0-23.9); URINE WBC 41 /uL (0-25.8)
[2023-12-29 16:58] LABS: YEAST PRESENT (NEGATIVE)
[2023-12-29] MEDS: SODIUM CHLORIDE 0.9% 500 ML INFUS.BAG IV ONE (18:15)
[2023-12-29] MEDS ORDERED: PIPERACILLIN/TAZOB 4.5 GM 4.5 GM/100 ML BAG IVPB ONE (18:16)
[2023-12-29] MEDS: PIPERACILLIN/TAZOB 4.5 GM 4.5 GM in DEXTROSE 5%-WATER 100 ML IVPB ONE (18:16)
[2023-12-29] MEDS: POTASSIUM CHLORIDE 10 MEQ in SODIUM CHLORIDE 0.45% 1,000 ML IVPB SCH (20:06)
[2023-12-30] MEDS: INSULIN ASPART SLIDING SCALE (NOVOLOG) 1 VIAL SQ SCH (00:29)
[2023-12-30] MEDS: PIPERACILLIN/TAZOB 4.5 GM 4.5 GM in DEXTROSE 5%-WATER 100 ML IVPB SCH (01:46)
[2023-12-30] MEDS ORDERED: PIPERACILLIN/TAZOB 4.5 GM 4.5 GM in DEXTROSE 5%-WATER 100 ML IVPB SCH (02:00)
[2023-12-30] MEDS: ACETAMINOPHEN 1000 MG/100 ML BAG IVPB PRN (05:59)
[2023-12-30 08:51] LABS: EOS % 0.2 % (0-4.5); HEMATOCRIT 32.2 % (32.4-45.2); HEMOGLOBIN 11.2 GM/dL (10.7-15.3); LYMPH % 10.5 % (8-40); MCHC 34.6 g/dl (32.0-36.0); MEAN CELL VOLUME 95.5 fl (80-96); MEAN PLT VOLUME 7.5 fl (7.5-11.1); MONO % 3.9 % (3.8-10.2); NEUT % 85.4 % (42.8-82.8); PLATELET COUNT 117 10^3/uL (134-434); RBC 3.38 M/mm3 (3.60-5.2); RDW 16.2 % (11.6-15.6); WHITE BLOOD COUNT 5.9 K/mm3 (4.0-10.0)
[2023-12-30 09:11] LABS: POTASSIUM 3.3 mmol/L (3.5-5.1)
[2023-12-30 09:22] LABS: CALCIUM 7.8 mg/dL (8.5-10.1)
[2023-12-30 09:23] LABS: ALBUMIN 2.4 g/dl (3.4-5.0); BLOOD UREA NITROGEN 8.9 mg/dL (7-18); MAGNESIUM 1.7 mg/dL (1.8-2.4)
[2023-12-30 09:26] LABS: CREATININE 0.4 mg/dL (0.55-1.3); PHOSPHOROUS 2.8 mg/dL (2.5-4.9)
[2023-12-30 09:27] LABS: TOT PROT 4.9 g/dl (6.4-8.2)
[2023-12-30 09:28] LABS: BILIRUBIN,TOTAL 1.2 mg/dL (0.2-1)
[2023-12-30] MEDS: ERGOCALCIFEROL (VIT D2) 50,000 UNIT (1.25 MG) CAPSULE PO ONE (17:28)
[2023-12-30] MEDS: D5-1/2NS+20 MEQ KCL - 20 MEQ/1,000 ML INFUS.BAG IV SCH (17:59)
[2023-12-30] MEDS: traMADol HCL 50 MG TABLET PO PRN (22:17)
[2023-12-31] MEDS: VALSARTAN 40 MG TABLET PO SCH (09:13)
[2023-12-31 09:50] LABS: BASO % 0.3 % (0-2.0); EOS % 1.9 % (0-4.5); HEMOGLOBIN 13.4 GM/dL (10.7-15.3); LYMPH % 8.1 % (8-40); MCH 32.3 pg (25.7-33.7); MCHC 33.6 g/dl (32.0-36.0); MEAN CELL VOLUME 96.1 fl (80-96); MEAN PLT VOLUME 7.2 fl (7.5-11.1); MONO % 4.6 % (3.8-10.2); NEUT % 85.1 % (42.8-82.8); PLATELET COUNT 136 10^3/uL (134-434); RBC 4.16 M/mm3 (3.60-5.2); RDW 16.5 % (11.6-15.6); WHITE BLOOD COUNT 5.6 K/mm3 (4.0-10.0)
[2023-12-31 10:06] LABS: CHLORIDE 105 mmol/L (98-107); SODIUM 134 mmol/L (136-145)
[2023-12-31 10:07] LABS: ALBUMIN 2.9 g/dl (3.4-5.0)
[2023-12-31 10:08] LABS: BLOOD UREA NITROGEN 4.4 mg/dL (7-18); CALCIUM 7.9 mg/dL (8.5-10.1); CO2 25 mmol/L (21-32); GLUCOSE,RANDOM 99 mg/dL (74-106)
[2023-12-31 10:11] LABS: CREATININE 0.5 mg/dL (0.55-1.3); SGOT/AST 20 U/L (15-37)
[2023-12-31 10:12] LABS: SGPT/ALT 16 U/L (13-61)
[2023-12-31 10:13] LABS: BILIRUBIN,TOTAL 1.1 mg/dL (0.2-1); TOT PROT 5.8 g/dl (6.4-8.2)
[2023-12-31 10:24] LABS: ALK PHOS 188 U/L (45-117); ANION GAP 4 mmol/L (4-13); POTASSIUM 2.7 mmol/L (3.5-5.1)
[2023-12-31] MEDS: POTASSIUM CHLORIDE ORAL LIQUID 20 MEQ/15 ML PO ONE ×2 (11:58→22:05)
[2023-12-31] MEDS: KCL 10 MEQ IVPB 10 MEQ/100 ML INFUS.BAG IVPB SCH ×2 (11:59→16:07)
[2023-12-31] MEDS ORDERED: D5-NS + 20 MEQ KCL - 20 MEQ/1,000 ML INFUS.BAG IV SCH (15:15)
[2023-12-31] MEDS: MAGNESIUM SULF 50% (8.12 MEQ/2 ML-1 GM VIAL) IVPB ONE (16:23)
[2023-12-31] MEDS: PIPERACILLIN/TAZOB 3.375 GM 3.375 GM in DEXTROSE 5%-WATER - 50 ML IVPB SCH ×2 (16:58→17:30)
[2023-12-31 18:09] LABS: CHLORIDE 103 mmol/L (98-107); POTASSIUM 3.8 mmol/L (3.5-5.1); SODIUM 133 mmol/L (136-145)
[2023-12-31 18:12] LABS: ANION GAP 7 mmol/L (4-13); CO2 23 mmol/L (21-32); GLUCOSE,RANDOM 87 mg/dL (74-106)
[2023-12-31 18:15] LABS: CREATININE 0.3 mg/dL (0.55-1.3)
[2023-12-31 18:17] LABS: BLOOD UREA NITROGEN 2.6 mg/dL (7-18)
[2023-12-31] MEDS: D5-NS + 20 MEQ KCL - 20 MEQ/1,000 ML INFUS.BAG IV SCH (22:37)
[2024-01-01 10:22] LABS: CHLORIDE 103 mmol/L (98-107); SODIUM 134 mmol/L (136-145)
[2024-01-01 10:34] LABS: CALCIUM 7.9 mg/dL (8.5-10.1)
[2024-01-01 10:35] LABS: CO2 24 mmol/L (21-32); GLUCOSE,RANDOM 131 mg/dL (74-106); MAGNESIUM 1.6 mg/dL (1.8-2.4)
[2024-01-01 10:38] LABS: CREATININE 0.4 mg/dL (0.55-1.3)
[2024-01-01 10:42] LABS: ANION GAP 6 mmol/L (4-13); BLOOD UREA NITROGEN 1.8 mg/dL (7-18); POTASSIUM 2.8 mmol/L (3.5-5.1)
[2024-01-01] MEDS: POTASSIUM CHLORIDE ORAL LIQUID 20 MEQ/15 ML PO ONE (12:00)
[2024-01-01] MEDS: MAGNESIUM SULF 50% (8.12 MEQ/2 ML-1 GM VIAL) IVPB ONE (12:02)
[2024-01-01] MEDS: KCL 10 MEQ IVPB 10 MEQ/100 ML INFUS.BAG IVPB SCH (12:04)
[2024-01-01 12:38] LABS: ALBUMIN 2.6 g/dl (3.4-5.0); ALK PHOS 164 U/L (45-117); BILIRUBIN,TOTAL 1.3 mg/dL (0.2-1); SGOT/AST 14 U/L (15-37); SGPT/ALT 12 U/L (13-61); TOT PROT 5.3 g/dl (6.4-8.2)
[2024-01-01 13:05] LABS: CHLORIDE 106 mmol/L (98-107); SODIUM 139 mmol/L (136-145)
[2024-01-01 13:07] LABS: CO2 23 mmol/L (21-32); GLUCOSE,RANDOM 144 mg/dL (74-106); MAGNESIUM 1.8 mg/dL (1.8-2.4)
[2024-01-01 13:10] LABS: CREATININE 0.4 mg/dL (0.55-1.3)
[2024-01-01 13:12] LABS: ANION GAP 11 mmol/L (4-13); BLOOD UREA NITROGEN 1.9 mg/dL (7-18); POTASSIUM 2.8 mmol/L (3.5-5.1)
[2024-01-02] MEDS: D5-NS + 20 MEQ KCL - 20 MEQ/1,000 ML INFUS.BAG IV SCH (02:04)
[2024-01-02 04:10] LABS: CHLORIDE 104 mmol/L (98-107); POTASSIUM 3.1 mmol/L (3.5-5.1); SODIUM 138 mmol/L (136-145)
[2024-01-02 04:12] LABS: ALBUMIN 2.6 g/dl (3.4-5.0); ANION GAP 11 mmol/L (4-13); CALCIUM 8.3 mg/dL (8.5-10.1); CO2 23 mmol/L (21-32); GLUCOSE,RANDOM 115 mg/dL (74-106)
[2024-01-02 04:14] LABS: SGPT/ALT 11 U/L (13-61)
[2024-01-02 04:15] LABS: CREATININE 0.4 mg/dL (0.55-1.3); SGOT/AST 15 U/L (15-37); URIC ACID 2.2 mg/dL (2.6-7.2)
[2024-01-02 04:17] LABS: BILIRUBIN,TOTAL 1.5 mg/dL (0.2-1); TOT PROT 5.8 g/dl (6.4-8.2)
[2024-01-02 04:18] LABS: ALK PHOS 161 U/L (45-117)
[2024-01-02] MEDS: POTASSIUM CHLORIDE ORAL LIQUID 20 MEQ/15 ML PO ONE (10:14)
[2024-01-02 10:19] LABS: BASO % 0.5 % (0-2.0); EOS % 1.8 % (0-4.5); HEMATOCRIT 37.3 % (32.4-45.2); HEMOGLOBIN 12.9 GM/dL (10.7-15.3); MCHC 34.6 g/dl (32.0-36.0); MEAN CELL VOLUME 95.2 fl (80-96); MEAN PLT VOLUME 7.3 fl (7.5-11.1); MONO % 5.8 % (3.8-10.2); NEUT % 79.9 % (42.8-82.8); PLATELET COUNT 141 10^3/uL (134-434); RBC 3.91 M/mm3 (3.60-5.2); RDW 16.5 % (11.6-15.6); WHITE BLOOD COUNT 6.4 K/mm3 (4.0-10.0)
[2024-01-02] MEDS: KCL 10 MEQ IVPB 10 MEQ/100 ML INFUS.BAG IVPB SCH (15:09)
[2024-01-02] MEDS: MAGNESIUM SULF 50% (8.12 MEQ/2 ML-1 GM VIAL) IVPB ONE (15:09)
[2024-01-02 15:19] LABS: BF WBC & OTHER NUCLEATED CELLS 651 /mm3
[2024-01-02 15:20] LABS: BODY FLUID MACROPHAGES 7 %; BODY FLUID MONOCYTE 4 %
[2024-01-03 09:56] LABS: BASO % 0.4 % (0-2.0); HEMATOCRIT 39.1 % (32.4-45.2); HEMOGLOBIN 13.1 GM/dL (10.7-15.3); LYMPH % 12.6 % (8-40); MCH 31.9 pg (25.7-33.7); MCHC 33.5 g/dl (32.0-36.0); MEAN CELL VOLUME 95.2 fl (80-96); MEAN PLT VOLUME 7.3 fl (7.5-11.1); MONO % 5.2 % (3.8-10.2); NEUT % 79.8 % (42.8-82.8); PLATELET COUNT 147 10^3/uL (134-434); RBC 4.11 M/mm3 (3.60-5.2); RDW 16.2 % (11.6-15.6); WHITE BLOOD COUNT 6.6 K/mm3 (4.0-10.0)
[2024-01-03] MEDS: D5-NS + 20 MEQ KCL - 20 MEQ/1,000 ML INFUS.BAG IV SCH ×2 (10:05→14:04)
[2024-01-03 10:06] LABS: INR 1.38 (0.83-1.09)
[2024-01-03 10:14] LABS: CHLORIDE 105 mmol/L (98-107); POTASSIUM 3.2 mmol/L (3.5-5.1); SODIUM 133 mmol/L (136-145)
[2024-01-03 10:17] LABS: CALCIUM 8.1 mg/dL (8.5-10.1)
[2024-01-03 10:18] LABS: ALBUMIN 2.6 g/dl (3.4-5.0); ANION GAP 5 mmol/L (4-13); CO2 23 mmol/L (21-32); GLUCOSE,RANDOM 98 mg/dL (74-106); MAGNESIUM 1.7 mg/dL (1.8-2.4)
[2024-01-03 10:21] LABS: CREATININE 0.4 mg/dL (0.55-1.3); SGOT/AST 16 U/L (15-37); SGPT/ALT 10 U/L (13-61)
[2024-01-03 10:22] LABS: BILIRUBIN,TOTAL 1.3 mg/dL (0.2-1); TOT PROT 5.8 g/dl (6.4-8.2)
[2024-01-03 10:24] LABS: ALK PHOS 169 U/L (45-117)
[2024-01-03] MEDS: POTASSIUM CHLORIDE TABS 20 MEQ TABLET.ER (FP) PO ONE (10:35)
[2024-01-03 10:38] LABS: BLOOD UREA NITROGEN 2.7 mg/dL (7-18)
[2024-01-03] MEDS ORDERED: PROPOFOL 40 ML ONE (12:04)
[2024-01-03] MEDS ORDERED: LIDOCAINE HCL/PF 2% SDV 5ML VIAL ONE (12:05)
[2024-01-03] MEDS ORDERED: SUCCINYLCHOLINE CHLORIDE 200 MG/10 ML SYRINGE ONE (12:06)
[2024-01-03] MEDS ORDERED: ONDANSETRON 4 MG/2 ML VIAL ONE (12:06)
[2024-01-03] MEDS ORDERED: DEXAMETHASONE SOD PHOSPHATE 4 MG/1 ML VIAL ONE (12:07)
[2024-01-03] MEDS ORDERED: ONDANSETRON 4 MG/2 ML VIAL IVPUSH PRN ×2 (12:19→13:20)
[2024-01-03] MEDS ORDERED: FENTANYL CITRATE/PF 50 MCG/ML VIAL ONE (12:27)
[2024-01-03] MEDS ORDERED: MIDAZOLAM HCL 2 MG/2 ML SINGLE DOSE VIAL ONE (12:27)
[2024-01-03] MEDS: SODIUM CHLORIDE 500 ML IV STA ×2 (13:29→14:29)
[2024-01-03] MEDS ORDERED: POTASSIUM PHOSPHATE 30 MM in SODIUM CHLORIDE 500 ML IVPB ONE (14:00)
[2024-01-03] MEDS: MAGNESIUM 2GM/50ML STERILE WATER IVPB IVPB ONE (14:36)
[2024-01-03] MEDS: POTASSIUM PHOSPHATE 30 MM in SODIUM CHLORIDE 500 ML IVPB ONE (14:36)
[2024-01-03] MEDS: INSULIN ASPART SLIDING SCALE (NOVOLOG) 1 VIAL SQ SCH (16:30)
[2024-01-03 17:11] LABS: BODY FLUID ALBUMIN 1.6 g/dL (Not Estab.)
[2024-01-03] MEDS: PIPERACILLIN/TAZOB 3.375 GM 3.375 GM in DEXTROSE 5%-WATER - 50 ML IVPB SCH (18:02)
[2024-01-04 02:29] VITALS: RESP 18
[2024-01-04 08:10] LABS: BASO % 0.1 % (0-2.0); EOS % 0.1 % (0-4.5); HEMATOCRIT 32.8 % (32.4-45.2); HEMOGLOBIN 11.2 GM/dL (10.7-15.3); LYMPH % 9.6 % (8-40); MCH 32.7 pg (25.7-33.7); MCHC 34.1 g/dl (32.0-36.0); MEAN PLT VOLUME 7.3 fl (7.5-11.1); MONO % 3.5 % (3.8-10.2); NEUT % 86.7 % (42.8-82.8); PLATELET COUNT 105 10^3/uL (134-434); RBC 3.41 M/mm3 (3.60-5.2); RDW 15.9 % (11.6-15.6); WHITE BLOOD COUNT 3.5 K/mm3 (4.0-10.0)
[2024-01-04] MEDS: MAGNESIUM 2GM/50ML STERILE WATER IVPB IVPB ONE (08:10)
[2024-01-04 08:24] LABS: POTASSIUM 4.3 mmol/L (3.5-5.1)
[2024-01-04 08:28] LABS: CALCIUM 7.9 mg/dL (8.5-10.1)
[2024-01-04 08:30] LABS: ALBUMIN 2.3 g/dl (3.4-5.0); BLOOD UREA NITROGEN 3.5 mg/dL (7-18)
[2024-01-04 08:33] LABS: BILIRUBIN,TOTAL 0.7 mg/dL (0.2-1); CREATININE 0.4 mg/dL (0.55-1.3)
[2024-01-04 08:35] LABS: TOT PROT 5.3 g/dl (6.4-8.2)
[2024-01-04] MEDS: VALSARTAN 40 MG TABLET PO SCH (09:55)
[2024-01-05 09:58] LABS: BASO % 0.1 % (0-2.0); EOS % 0.8 % (0-4.5); HEMATOCRIT 36.8 % (32.4-45.2); HEMOGLOBIN 12.8 GM/dL (10.7-15.3); MCH 33.2 pg (25.7-33.7); MCHC 34.8 g/dl (32.0-36.0); MEAN CELL VOLUME 95.4 fl (80-96); MEAN PLT VOLUME 7.5 fl (7.5-11.1); NEUT % 82.1 % (42.8-82.8); PLATELET COUNT 158 10^3/uL (134-434); RBC 3.86 M/mm3 (3.60-5.2); RDW 16.9 % (11.6-15.6); WHITE BLOOD COUNT 6.2 K/mm3 (4.0-10.0)
[2024-01-05 10:09] LABS: POTASSIUM 3.4 mmol/L (3.5-5.1)
[2024-01-05 10:11] LABS: CALCIUM 8.4 mg/dL (8.5-10.1)
[2024-01-05 10:12] LABS: ALBUMIN 2.5 g/dl (3.4-5.0); BLOOD UREA NITROGEN 4.8 mg/dL (7-18)
[2024-01-05 10:15] LABS: CREATININE 0.5 mg/dL (0.55-1.3)
[2024-01-05 10:16] LABS: BILIRUBIN,TOTAL 0.6 mg/dL (0.2-1)
[2024-01-05 10:17] LABS: TOT PROT 5.6 g/dl (6.4-8.2)
[2024-01-05] MEDS: ACETAMINOPHEN 1000 MG/100 ML BAG IVPB PRN (12:22)
[2024-01-05 14:26] VITALS: BP 121/70; PULSE 80; TEMP 98.5
[2024-01-05] MEDS: AMOX TR/POT CLAV 500MG/125MG TABLETS (FP) PO SCH (17:22)
[2024-01-05] MEDS: POTASSIUM CHLORIDE ORAL LIQUID 20 MEQ/15 ML PO ONE (18:55)
== END 2024-01-05 21:00 | DRG 660 ==
LOC: JER 13:00 → JERBED 18:05 → J6S 12-30 00:08
PROVIDERS: ADMIT Internal Medicine; ATTEND Internal Medicine
PROC: 0W9G30Z Drainage of Peritoneal Cavity with Drainage Device, Percutaneous Approach (ICD-10-PCS; 2024-01-02)
PROC: 0TJB8ZZ Inspection of Bladder, Via Natural or Artificial Opening Endoscopic (ICD-10-PCS; principal; 2024-01-03 12:00)
PROC: 0T768DZ Dilation of Right Ureter with Intraluminal Device, Via Natural or Artificial Opening Endoscopic (ICD-10-PCS; 2024-01-03 12:00)
DX: N13.6 Pyonephrosis (principal); R18.8 Other ascites; E11.9 Type 2 diabetes mellitus without complications; I10 Essential (primary) hypertension; K75.4 Autoimmune hepatitis; E87.8 Other disorders of electrolyte and fluid balance, not elsewhere classified; E87.6 Hypokalemia; E83.42 Hypomagnesemia; K57.90 Diverticulosis of intestine, part unspecified, without perforation or abscess without bleeding; N20.0 Calculus of kidney; M51.36 Other intervertebral disc degeneration, lumbar region; M48.54XG Collapsed vertebra, not elsewhere classified, thoracic region, subsequent encounter for fracture with delayed healing; M48.56XG Collapsed vertebra, not elsewhere classified, lumbar region, subsequent encounter for fracture with delayed healing; M54.9 Dorsalgia, unspecified
CPT/HCPCS: 36415; 71045-TC-FY; 74176-TC; 74182-TC; 76000-TC-FY; 76705-TC; 76942-TC; 80048; 80053; 81003; 82042; 82105; 82150; 82310; 82465; 82533; 82945; 82962; 83615; 83690; 83735; 83970; 83986; 84100; 84157; 84443; 84478; 84550; 85025; 85610; 85730; 86704; 86803; 86850; 86900; 86901; 87040; 87070; 87075; 87086; 87102; 87116; 87205; 87206; 87210; 87340; 87517; 88108; 88305-TC; 94760; 97116-GP; 97162-GP; 99285-25; C1758; C2617; J0131

== ENCOUNTER 2024-02-05 15:27 | Inpatient (IN) | payer OTHER ==
[2024-02-05] MEDS: PIPERACILLIN/TAZOB 3.375 GM 3.375 GM in DEXTROSE 5%-WATER - 50 ML IVPB ONE (15:45)
[2024-02-05] MEDS: VANCOMYCIN 1,000 MG in DEXTROSE 5%-WATER - 250 ML IVPB ONE (15:45)
[2024-02-05] MEDS: LACTATED RINGERS SOLUTION 1000 ML INFUS.BAG IV ONE ×3 (16:00→18:26)
[2024-02-05] MEDS: ACETAMINOPHEN 1000 MG/100 ML BAG IVPB ONE (16:00)
[2024-02-05] MEDS ORDERED: ACETAMINOPHEN INJECTION 100 ML IVPB ONE (16:29)
[2024-02-05 16:31] LABS: VENOUS BASE EXCESS -0.8 mmol/L (-2-2); VENOUS O2 SATURATION 75.2 % (70-80); VENOUS PCO2 45.6 mmHg (38-52); VENOUS PH 7.356 (7.310-7.410)
[2024-02-05 16:39] LABS: BASO % 0.4 % (0-2.0); EOS % 1.9 % (0-4.5); HEMATOCRIT 35.2 % (32.4-45.2); HEMOGLOBIN 11.6 GM/dL (10.7-15.3); LYMPH % 5.8 % (8-40); MCH 31.7 pg (25.7-33.7); MCHC 32.9 g/dl (32.0-36.0); MEAN CELL VOLUME 96.4 fl (80-96); MONO % 3.5 % (3.8-10.2); NEUT % 88.4 % (42.8-82.8); PLATELET COUNT 219 10^3/uL (134-434); RBC 3.65 M/mm3 (3.60-5.2); RDW 17.4 % (11.6-15.6); WHITE BLOOD COUNT 13.3 K/mm3 (4.0-10.0)
[2024-02-05] MEDS ORDERED: PIPERACILLIN/TAZOB 3.375 GM 3.375 GM/50 ML BAG IVPB ONE ×2 (16:42→16:50)
[2024-02-05] MEDS ORDERED: VANCOMYCIN 1 GRAM (PRE-DOCKED) 1,000 MG/250 ML BAG IVPB ONE (16:42)
[2024-02-05 16:43] LABS: INR 2.1 (0.83-1.09); PROTHROMBIN TIME (PATIENT) 23.2 SEC (9.7-13.0)
[2024-02-05 16:46] LABS: ACTIVATED PTT 28.6 SECONDS (25.2-36.5)
[2024-02-05 16:47] LABS: EPI CELLS 29 /uL (0-25.1); HYALINE CASTS 17 /uL (0-3.1); URINE APPEARANCE TURBID; URINE BACTERIA >9,000 /uL (0-1359); URINE BILIRUBIN NEGATIVE (NEGATIVE); URINE COLOR YELLOW; URINE GLUCOSE (UA) NEGATIVE (NEGATIVE); URINE KETONE NEGATIVE (NEGATIVE); URINE LEUK ESTERASE 3+ (NEGATIVE); URINE NITRITE NEGATIVE (NEGATIVE); URINE PROTEIN 2+ (NEGATIVE); URINE WBC 3581 /uL (0-25.8)
[2024-02-05 16:53] LABS: POTASSIUM 3.5 mmol/L (3.5-5.1)
[2024-02-05 16:54] LABS: CALCIUM 8.2 mg/dL (8.5-10.1)
[2024-02-05 16:55] LABS: ALBUMIN 1.8 g/dl (3.4-5.0); BLOOD UREA NITROGEN 12.4 mg/dL (7-18)
[2024-02-05 16:58] LABS: CREATININE 0.7 mg/dL (0.55-1.3)
[2024-02-05 17:00] LABS: BILIRUBIN,TOTAL 2.2 mg/dL (0.2-1); TOT PROT 5.9 g/dl (6.4-8.2)
[2024-02-05 17:03] LABS: LACTIC ACID 2.5 mmol/L (0.4-2.0)
[2024-02-05 18:41] LABS: LACTIC ACID 4.3 mmol/L (0.4-2.0)
[2024-02-05] MEDS ORDERED: NOREPINEPHRINE 0.9 % NACL 8 MG/250 ML BAG IVPB ONE (18:53)
[2024-02-05] MEDS: NOREPINEPHRINE BITARTRATE 8,000 MCG in DEXTROSE 5%-WATER - 492 ML IV STA (19:10)
[2024-02-05] MEDS: NOREPINEPHRINE BITARTRATE/D5W 8 MG/250 ML BAG IVPB STA (19:13)
[2024-02-05 19:26] LABS: URINE CRYSTALS FEW /hpf; URINE RBC 52.8 /uL (0-23.9)
[2024-02-05] MEDS ORDERED: ACETAMINOPHEN 325 MG TABLET (FP) PO PRN (19:28)
[2024-02-05] MEDS: LACTATED RINGERS SOLUTION 1,000 ML/1,000 ML INFUS.BAG IV STA ×2 (20:28→21:22)
[2024-02-05] MEDS: HEPARIN NA (PORCINE) 5,000 UNITS/ML 1ML VIAL SQ SCH (21:23)
[2024-02-05] MEDS: CHLORHEXIDINE GLUCONATE 4% CLEANSER FOR DECOLONIZATION TP SCH (21:23)
[2024-02-05] MEDS: MUPIROCIN 2% TOPICAL OINTMENT FOR DECOLONIZATION NS SCH (21:26)
[2024-02-05] MEDS: INSULIN ASPART SLIDING SCALE (NOVOLOG) 1 VIAL SQ SCH (21:45)
[2024-02-06] MEDS ORDERED: PIPERACILLIN/TAZOB 4.5 GM 4.5 GM in DEXTROSE 5%-WATER 100 ML IVPB SCH (02:00)
[2024-02-06] MEDS: PIPERACILLIN/TAZOB 4.5 GM 4.5 GM in DEXTROSE 5%-WATER 100 ML IVPB SCH ×2 (02:27→19:12)
[2024-02-06 06:47] LABS: HEMATOCRIT 35.7 % (32.4-45.2); HEMOGLOBIN 11.7 GM/dL (10.7-15.3); MCH 31.2 pg (25.7-33.7); MCHC 32.6 g/dl (32.0-36.0); MEAN CELL VOLUME 95.8 fl (80-96); MEAN PLT VOLUME 6.7 fl (7.5-11.1); PLATELET COUNT 207 10^3/uL (134-434); RBC 3.73 M/mm3 (3.60-5.2); RDW 17.3 % (11.6-15.6); WHITE BLOOD COUNT 15.2 K/mm3 (4.0-10.0)
[2024-02-06 07:04] LABS: INR 2.13 (0.83-1.09); PROTHROMBIN TIME (PATIENT) 23.5 SEC (9.7-13.0)
[2024-02-06 07:06] LABS: ALBUMIN 1.5 g/dl (3.4-5.0); BLOOD UREA NITROGEN 8.2 mg/dL (7-18); CALCIUM 7.9 mg/dL (8.5-10.1); MAGNESIUM 1.2 mg/dL (1.8-2.4)
[2024-02-06 07:09] LABS: CREATININE 0.6 mg/dL (0.55-1.3); PHOSPHOROUS 3.1 mg/dL (2.5-4.9)
[2024-02-06 07:10] LABS: BILIRUBIN,TOTAL 2.2 mg/dL (0.2-1); TOT PROT 5.1 g/dl (6.4-8.2)
[2024-02-06 07:35] LABS: LACTIC ACID 3.1 mmol/L (0.4-2.0)
[2024-02-06] MEDS: MAGNESIUM SULF 50% (8.12 MEQ/2 ML-1 GM VIAL) IVPB ONE (08:00)
[2024-02-06] MEDS: KCL 10 MEQ IVPB 10 MEQ/100 ML INFUS.BAG IVPB SCH (08:00)
[2024-02-06] MEDS: PANTOPRAZOLE SODIUM 40 MG VIAL IVPUSH SCH (10:37)
[2024-02-06] MEDS: MEROPENEM 1 GM in DEXTROSE 5%-WATER 100 ML IVPB SCH (11:49)
[2024-02-06] MEDS: PHYTONADIONE 5 MG TABLET PO ONE (11:50)
[2024-02-06] MEDS: SERTRALINE HCL 50 MG TABLET (FP) PO SCH (11:50)
[2024-02-06] MEDS: POTASSIUM CHLORIDE ORAL LIQUID 20 MEQ/15 ML PO ONE (11:51)
[2024-02-06] MEDS ORDERED: MIDODRINE HCL 5 MG TABLET PO SCH (14:00)
[2024-02-06] MEDS: PHYTONADIONE 10 MG/1 ML AMP IVPB ONE (14:22)
[2024-02-06] MEDS: MIDODRINE HCL 5 MG TABLET PO SCH (14:22)
[2024-02-06 15:40] LABS: BILIRUBIN,DIRECT 1.2 mg/dL (0.0-0.2)
[2024-02-06] MEDS: LACTATED RINGERS SOLUTION 1,000 ML/1,000 ML INFUS.BAG IV SCH (19:45)
[2024-02-07 06:45] LABS: BASO % 0.6 % (0-2.0); EOS % 3.3 % (0-4.5); HEMATOCRIT 27.9 % (32.4-45.2); HEMOGLOBIN 9.7 GM/dL (10.7-15.3); LYMPH % 9.4 % (8-40); MCH 32.9 pg (25.7-33.7); MCHC 34.7 g/dl (32.0-36.0); MEAN CELL VOLUME 94.8 fl (80-96); MEAN PLT VOLUME 6.8 fl (7.5-11.1); MONO % 5.7 % (3.8-10.2); PLATELET COUNT 136 10^3/uL (134-434); RBC 2.94 M/mm3 (3.60-5.2); RDW 17.4 % (11.6-15.6); WHITE BLOOD COUNT 6.5 K/mm3 (4.0-10.0)
[2024-02-07 06:53] LABS: INR 1.71 (0.83-1.09)
[2024-02-07 06:55] LABS: ACTIVATED PTT 34.1 SECONDS (25.2-36.5)
[2024-02-07 07:00] LABS: CHLORIDE 106 mmol/L (98-107); SODIUM 136 mmol/L (136-145)
[2024-02-07 07:02] LABS: ALBUMIN 1.4 g/dl (3.4-5.0); BLOOD UREA NITROGEN 6.5 mg/dL (7-18); CALCIUM 7.5 mg/dL (8.5-10.1); CO2 27 mmol/L (21-32); GLUCOSE,RANDOM 83 mg/dL (74-106); MAGNESIUM 1.7 mg/dL (1.8-2.4)
[2024-02-07 07:05] LABS: CREATININE 0.5 mg/dL (0.55-1.3); PHOSPHOROUS 2.6 mg/dL (2.5-4.9); SGPT/ALT 10 U/L (13-61)
[2024-02-07 07:06] LABS: BILIRUBIN,TOTAL 1.2 mg/dL (0.2-1); SGOT/AST 16 U/L (15-37); TOT PROT 4.6 g/dl (6.4-8.2)
[2024-02-07 07:08] LABS: ALK PHOS 169 U/L (45-117)
[2024-02-07 07:24] LABS: ANION GAP 4 mmol/L (4-13); POTASSIUM 2.8 mmol/L (3.5-5.1)
[2024-02-07] MEDS: POTASSIUM CHLORIDE ORAL LIQUID 20 MEQ/15 ML PO ONE ×2 (09:18→13:33)
[2024-02-07] MEDS: SENNOSIDES 8.6MG TABLET (FP) PO SCH ×2 (09:18→22:16)
[2024-02-07] MEDS: MAGNESIUM 2GM/50ML STERILE WATER IVPB IVPB ONE (09:20)
[2024-02-07] MEDS: MIDODRINE HCL 5 MG TABLET PO SCH (09:49)
[2024-02-07] MEDS: PHYTONADIONE 5 MG TABLET PO SCH (13:33)
[2024-02-07] MEDS ORDERED: RAPID SEQUENCE INTUBATION KIT NR ONE (14:33)
[2024-02-07] MEDS: INSULIN ASPART SLIDING SCALE (NOVOLOG) 1 VIAL SQ SCH (21:41)
[2024-02-07] MEDS ORDERED: MUPIROCIN 2% TOPICAL OINTMENT FOR DECOLONIZATION NS SCH (22:00)
[2024-02-07] MEDS ORDERED: CHLORHEXIDINE GLUCONATE 4% CLEANSER FOR DECOLONIZATION TP SCH (22:00)
[2024-02-07] MEDS ORDERED: SENNOSIDES 8.6MG TABLET (FP) PO SCH (22:00)
[2024-02-07] MEDS: HEPARIN NA (PORCINE) 5,000 UNITS/ML 1ML VIAL SQ SCH (22:16)
[2024-02-08] MEDS: MEROPENEM 1 GM in DEXTROSE 5%-WATER 100 ML IVPB SCH (01:51)
[2024-02-08 08:18] LABS: HEMATOCRIT 29.6 % (32.4-45.2); HEMOGLOBIN 10.3 GM/dL (10.7-15.3); MCH 32.8 pg (25.7-33.7); MCHC 34.8 g/dl (32.0-36.0); MEAN CELL VOLUME 94.1 fl (80-96); MEAN PLT VOLUME 6.8 fl (7.5-11.1); PLATELET COUNT 137 10^3/uL (134-434); RBC 3.14 M/mm3 (3.60-5.2); RDW 17.4 % (11.6-15.6); WHITE BLOOD COUNT 5.9 K/mm3 (4.0-10.0)
[2024-02-08 08:21] LABS: INR 1.47 (0.83-1.09); PROTHROMBIN TIME (PATIENT) 16.4 SEC (9.7-13.0)
[2024-02-08 08:35] LABS: CHLORIDE 104 mmol/L (98-107); SODIUM 134 mmol/L (136-145)
[2024-02-08 08:41] LABS: ALBUMIN 1.3 g/dl (3.4-5.0); BLOOD UREA NITROGEN 5.7 mg/dL (7-18); CALCIUM 7.2 mg/dL (8.5-10.1); CO2 27 mmol/L (21-32); GLUCOSE,RANDOM 82 mg/dL (74-106); MAGNESIUM 1.8 mg/dL (1.8-2.4)
[2024-02-08 08:44] LABS: CREATININE 0.5 mg/dL (0.55-1.3); PHOSPHOROUS 2.3 mg/dL (2.5-4.9); SGOT/AST 20 U/L (15-37); SGPT/ALT 11 U/L (13-61)
[2024-02-08 08:46] LABS: TOT PROT 4.5 g/dl (6.4-8.2)
[2024-02-08 09:03] LABS: ALK PHOS 212 U/L (45-117); ANION GAP 4 mmol/L (4-13); POTASSIUM 2.9 mmol/L (3.5-5.1)
[2024-02-08] MEDS: PANTOPRAZOLE SODIUM 40 MG VIAL IVPUSH SCH (10:18)
[2024-02-08] MEDS: SERTRALINE HCL 50 MG TABLET (FP) PO SCH (10:18)
[2024-02-08] MEDS: MIDODRINE HCL 5 MG TABLET PO SCH (10:19)
[2024-02-08] MEDS: PHYTONADIONE 5 MG TABLET PO SCH (10:20)
[2024-02-08] MEDS: MINERAL OIL/PET HY-PHL TOPICAL OINTMENT 454 GM JAR TP SCH (10:20)
[2024-02-08] MEDS: KCL 10 MEQ IVPB 10 MEQ/100 ML INFUS.BAG IVPB SCH (11:59)
[2024-02-08] MEDS: POTASSIUM CHLORIDE ORAL LIQUID 20 MEQ/15 ML PO ONE (11:59)
[2024-02-08] MEDS: NAPH,MB-DB/K PH,MBDB POWDER PACKET PO SCH (17:00)
[2024-02-09 08:50] LABS: POTASSIUM 3.6 mmol/L (3.5-5.1)
[2024-02-09 08:58] LABS: CALCIUM 7.5 mg/dL (8.5-10.1); CREATININE 0.4 mg/dL (0.55-1.3)
[2024-02-09 08:59] LABS: ALBUMIN 1.5 g/dl (3.4-5.0); BLOOD UREA NITROGEN 5.6 mg/dL (7-18)
[2024-02-09 09:00] LABS: MAGNESIUM 1.6 mg/dL (1.8-2.4); TOT PROT 4.9 g/dl (6.4-8.2)
[2024-02-09 09:02] LABS: PHOSPHOROUS 2.7 mg/dL (2.5-4.9)
[2024-02-09] MEDS: PANTOPRAZOLE 40 MG TABLET PO SCH (09:46)
[2024-02-09] MEDS: MAGNESIUM SULF 50% (8.12 MEQ/2 ML-1 GM VIAL) IVPB ONE ×2 (13:00→15:43)
[2024-02-09] MEDS: ACETAMINOPHEN 325 MG TABLET (FP) PO ONE (17:26)
[2024-02-10] MEDS: ACETAMINOPHEN 325 MG TABLET (FP) PO PRN (14:25)
[2024-02-10] MEDS ORDERED: ONDANSETRON *ODT* 4 MG TABLET SL PRN (16:02)
[2024-02-11] MEDS: ONDANSETRON 4 MG/2 ML VIAL IVPUSH PRN (12:05)
[2024-02-12 07:48] LABS: HEMATOCRIT 33.5 % (32.4-45.2); HEMOGLOBIN 11.3 GM/dL (10.7-15.3); MCH 31.6 pg (25.7-33.7); MCHC 33.7 g/dl (32.0-36.0); MEAN CELL VOLUME 93.8 fl (80-96); MEAN PLT VOLUME 6.7 fl (7.5-11.1); PLATELET COUNT 238 10^3/uL (134-434); RBC 3.58 M/mm3 (3.60-5.2); RDW 16.3 % (11.6-15.6)
[2024-02-12 08:10] LABS: CHLORIDE 94 mmol/L (98-107); SODIUM 128 mmol/L (136-145)
[2024-02-12 08:17] LABS: ALBUMIN 1.7 g/dl (3.4-5.0); CALCIUM 7.8 mg/dL (8.5-10.1); CO2 26 mmol/L (21-32); GLUCOSE,RANDOM 82 mg/dL (74-106); MAGNESIUM 1.5 mg/dL (1.8-2.4)
[2024-02-12 08:19] LABS: CREATININE 0.4 mg/dL (0.55-1.3); SGOT/AST 32 U/L (15-37); SGPT/ALT 14 U/L (13-61)
[2024-02-12 08:20] LABS: BILIRUBIN,TOTAL 1.2 mg/dL (0.2-1); TOT PROT 5.7 g/dl (6.4-8.2)
[2024-02-12 08:22] LABS: ALK PHOS 260 U/L (45-117)
[2024-02-12 08:45] LABS: ANION GAP 7 mmol/L (4-13); POTASSIUM 2.5 mmol/L (3.5-5.1)
[2024-02-12] MEDS: KCL 10 MEQ IVPB 10 MEQ/100 ML INFUS.BAG IVPB ONE (12:06)
[2024-02-12] MEDS: KCL 10 MEQ IVPB 10 MEQ/100 ML INFUS.BAG IVPB SCH (14:56)
[2024-02-12] MEDS: MAGNESIUM 2GM/50ML STERILE WATER IVPB IVPB ONE (17:02)
[2024-02-12] MEDS: POTASSIUM CHLORIDE ORAL LIQUID 20 MEQ/15 ML PO SCH (22:58)
[2024-02-13 08:27] LABS: POTASSIUM 3.2 mmol/L (3.5-5.1)
[2024-02-13 08:50] LABS: CALCIUM 7.2 mg/dL (8.5-10.1)
[2024-02-13 08:51] LABS: BLOOD UREA NITROGEN 3.6 mg/dL (7-18)
[2024-02-13 08:54] LABS: CREATININE 0.3 mg/dL (0.55-1.3)
[2024-02-13 12:08] VITALS: BMI 19.1
[2024-02-13] MEDS: MIDODRINE HCL 5 MG TABLET PO SCH (14:46)
[2024-02-13] MEDS ORDERED: INSULIN (NOVOLOG) ASPART 100 UNITS/ML 10ML VIAL ONE (16:38)
[2024-02-14 02:12] VITALS: RESP 20
[2024-02-14 08:42] LABS: CHLORIDE 101 mmol/L (98-107); POTASSIUM 3.5 mmol/L (3.5-5.1); SODIUM 133 mmol/L (136-145)
[2024-02-14 08:46] LABS: CALCIUM 7.4 mg/dL (8.5-10.1)
[2024-02-14 08:47] LABS: ALBUMIN 1.6 g/dl (3.4-5.0); ANION GAP 7 mmol/L (4-13); CO2 25 mmol/L (21-32); GLUCOSE,RANDOM 91 mg/dL (74-106)
[2024-02-14 08:49] LABS: SGPT/ALT 12 U/L (13-61)
[2024-02-14 08:50] LABS: CREATININE 0.3 mg/dL (0.55-1.3); SGOT/AST 25 U/L (15-37)
[2024-02-14 08:51] LABS: BILIRUBIN,TOTAL 1.2 mg/dL (0.2-1); MAGNESIUM 1.7 mg/dL (1.8-2.4); TOT PROT 5.4 g/dl (6.4-8.2)
[2024-02-14 08:52] LABS: ALK PHOS 243 U/L (45-117)
[2024-02-14 08:55] LABS: BLOOD UREA NITROGEN 2.9 mg/dL (7-18)
[2024-02-14 09:24] VITALS: TEMP 98.6
[2024-02-14 10:10] LABS: HEMATOCRIT 31.5 % (32.4-45.2); HEMOGLOBIN 10.7 GM/dL (10.7-15.3); MCHC 33.9 g/dl (32.0-36.0); MEAN CELL VOLUME 94.4 fl (80-96); MEAN PLT VOLUME 6.7 fl (7.5-11.1); PLATELET COUNT 235 10^3/uL (134-434); RBC 3.34 M/mm3 (3.60-5.2); RDW 16.7 % (11.6-15.6); WHITE BLOOD COUNT 8.3 K/mm3 (4.0-10.0)
[2024-02-14] MEDS: MAGNESIUM 1GM/D5W 100ML - 100 ML IVPB IVPB ONE (12:34)
[2024-02-14 12:55] VITALS: BP 107/72; PULSE 110
[2024-02-14] MEDS ORDERED: MAGNESIUM OXIDE 400 MG TABLET (FP) PO ONE (12:58)
== END 2024-02-14 13:23 | DRG 871 ==
LOC: JER 15:27 → JERBED 19:26 → JICU 20:16 → J8W 02-07 15:18
PROVIDERS: ADMIT Internal Medicine; ATTEND Internal Medicine
DX: A41.50 Gram-negative sepsis, unspecified (principal); R65.21 Severe sepsis with septic shock; E87.20 Acidosis, unspecified; N39.0 Urinary tract infection, site not specified; R18.8 Other ascites; D68.9 Coagulation defect, unspecified; K75.4 Autoimmune hepatitis; K74.60 Unspecified cirrhosis of liver; E11.9 Type 2 diabetes mellitus without complications; E87.6 Hypokalemia; E83.42 Hypomagnesemia; D72.829 Elevated white blood cell count, unspecified
CPT/HCPCS: 0241U-QW; 36415; 70450-TC; 71045-TC-FY; 74177-TC; 80048; 80053; 81003; 82140; 82248; 82803; 82962; 82977; 83605; 83735; 84100; 84484; 85025; 85027; 85610; 85730; 86850; 86900; 86901; 87040; 87086; 87186; 87635; 97116-GP; 97161-GP; 99291; J0131; J1644